=== PATIENT | male | born 1990 | race American Indian/Alaskan Native ===

== ENCOUNTER 2021-10-15 13:14 | Emergency (ER) | payer MEDICAID, SELFPAY ==
[2021-10-15 13:21] VITALS: BP 113/54; PULSE 70; O2SAT 97
[2021-10-15 13:32] VITALS: BP 102/55; PULSE 70; RESP 16; TEMP 36.1; O2SAT 97; BMI 22.8
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
[2021-10-15] MEDS: Famotidine/PF 20 MG/2 ML VIAL IVPUSH (14:46)
[2021-10-15] MEDS: EPINEPHrine 1 MG/ML VIAL 0.3 MG IM (14:46)
--- NOTE | 2021-10-15 15:19 | ECG_ITS ---
Test Reason : anaphalaxis Blood Pressure : / mmHG Vent. Rate : 069 BPM Atrial Rate : 069 BPM P-R Int : 148 ms QRS Dur : 086 ms QT Int : 388 ms P-R-T Axes : 073 078 056 degrees QTc Int : 415 ms Normal sinus rhythm Normal ECG No previous ECGs available Referred By: Jose Tierney Electronically Signed By:FAN KAYE
[2021-10-15 16:06] VITALS: BP 116/55; PULSE 68; RESP 16; O2SAT 97
== END 2021-10-15 16:30 | disposition home or self-care (01) ==
PROVIDERS: Emergency Provider Emergency Medicine Emergency Medical Services
DX: L50.0 Allergic urticaria (principal); R06.02 Shortness of breath; Z79.899 Other long term (current) drug therapy
CPT/HCPCS: 93005; 99283; J0171

== ENCOUNTER 2023-08-01 03:51 | Emergency (ER) | payer SELFPAY ==
--- NOTE | 2023-08-01 | ECG_ITS ---
Test Reason : SEIZURES Blood Pressure : / mmHG Vent. Rate : 063 BPM Atrial Rate : 063 BPM P-R Int : 168 ms QRS Dur : 088 ms QT Int : 386 ms P-R-T Axes : 073 077 045 degrees QTc Int : 395 ms Normal sinus rhythm Normal ECG When compared with ECG of 15-OCT-2021 15:19, No significant change was found Referred By: Generic ED Physician Electronically Signed By:Marquez Robison
--- NOTE | ~2023-08-01 | CT_ITS ---
EXAMINATION: CT HEAD WITHOUT CONTRAST CLINICAL INFORMATION: Seizure. COMPARISON: 05/19/2012. TECHNIQUE: Contiguous axial imaging was performed from the skull base to vertex without intravenous administration of contrast. This CT examination was performed using dose optimization techniques as appropriate, variously including the following: *Automated exposure control *Adjustment of mA and/or kV according to patient size (this includes techniques or standardized protocols for targeted exams where dose is matched to indication/reason for exam; i.e. extremities or head) *Use of iterative reconstruction technique DLP: 655 mGy-cm FINDINGS: The lateral, third and fourth ventricles are normally outlined. The cortical sulci and basal cisterns are normally outlined as well. There is no acute territorial defect, hemorrhage or midline shift. The extra-axial spaces are unremarkable. Calvarium: Intact. Maxillofacial sinuses and mastoids: Clear as visualized. CT/CT head/brain wo IV con IMPRESSION: No acute intracranial pathology.
[2023-08-01 03:58] VITALS: BP 120/60; PULSE 77; O2SAT 98
[2023-08-01 03:59] VITALS: BP 109/59; PULSE 66; RESP 16; TEMP 36.7; O2SAT 97; BMI 24.4
[2023-08-01 04:24] LABS: MANUAL DIFF FLAG NO
[2023-08-01 04:27] LABS: Basophils Percent Auto 0.4 % (0-2); Eosinophils Absolute Auto 0.4 X10*3/uL (0.0-0.4); Hematocrit 43.3 % (42.0-52.0); Hemoglobin 14.9 g/dl (14.0-18.0); Imm Gran Abs Auto 0.01 X10*3/uL (0.00-0.03); Imm Gran Pct Auto 0.1 % (0.0-0.4); Lymphocytes Absolute Auto 2.9 X10*3/uL (1.2-4.9); Lymphocytes Percent Auto 39.2 % (20-40); Mean Corpuscular HGB Conc 34.4 g/dl (31.0-36.0); Mean Corpuscular Hemoglobin 30.3 pg (27.0-33.0); Mean Corpuscular Volume 88.2 fL (80.0-98.0); Mean Platelet Volume 9.1 fL (9.4-12.4); Monocytes Absolute Auto 0.6 X10*3/uL (0.1-1.2); Monocytes Percent Auto 8.1 % (2-11); Neutrophils Absolute Auto 3.5 x10*3/uL (2.0-8.3); Neutrophils Percent Auto 47.2 % (45-73); Platelet Count 225 X10*3/uL (160-400); Red Blood Count 4.91 X10*6/uL (4.60-5.80); Red Cell Distribution Width 13.5 % (11.0-16.0); White Blood Count 7.4 X10*3/uL (4.8-10.8)
--- NOTE | 2023-08-01 04:31 | PC.NURSE ---
IV place by EMS not flushing and patient reports pain in area. IV removed. New 20G placed in L forearm, patent and flushing well.
--- NOTE | 2023-08-01 04:32 | PC.NURSE ---
PT a & o x 4, sitting upright in bed, responding appropriately. Sig other @ bedside. Seizure pads in place. Labs sent. Awaiting provider.
[2023-08-01 04:42] LABS: Alanine Aminotransferase 16 U/L (0-40); Albumin Level 4.3 g/dL (3.5-5.0); Alkaline Phosphatase 59 U/L (39-117); Anion Gap 12 (12-20); Aspartate Amino Transferase 16 U/L (5-37); Bilirubin Total 0.3 mg/dL (0.0-1.0); Blood Urea Nitrogen 14 mg/dL (9-16); Calcium 9.1 mg/dL (8.4-10.2); Carbon Dioxide 24 mmol/L (22-29); Chloride 107 mmol/L (96-108); Creatinine Clr Calc Pharmacy 117.9; Estimated Glomerular Filt Rate > 60; Glucose Random 110 mg/dL (60-115); Potassium 3.7 mmol/L (3.3-5.1); Sodium 139 mmol/L (135-145); Total Protein 6.5 g/dL (6.5-8.0)
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
[2023-08-01 06:38] VITALS: BP 98/48; PULSE 56; RESP 14; TEMP 36.8; O2SAT 98
[2023-08-01] MEDS: Ketorolac Tromethamine 15 MG/ML VIAL 10 MG IVPUSH (07:55)
[2023-08-01 07:56] VITALS: PULSE 55; RESP 18; O2SAT 97
[2023-08-01 09:13] VITALS: BP 105/64; PULSE 60; RESP 16; TEMP 36.9; O2SAT 99
== END 2023-08-01 09:15 | disposition home or self-care (01) ==
PROVIDERS: Emergency Provider Emergency Medicine
DX: R56.9 Unspecified convulsions (principal); Z88.5 Allergy status to narcotic agent
CPT/HCPCS: 36415; 70450; 80053; 85025; 93005; 96374; 99284; 99285; J1885

== ENCOUNTER → 2023-08-01 04:04 | Outpatient (BNV) | payer SELFPAY | PROVIDERS: Emergency Provider Emergency Medicine; Visit Provider Internal Medicine Cardiovascular Disease | DX: R56.9 Unspecified convulsions (principal) | CPT/HCPCS: 93010 ==

== ENCOUNTER 2023-10-14 20:11 | Emergency (ER) | payer MEDICAID, SELFPAY ==
--- NOTE | ~2023-10-14 | XR_ITS ---
EXAMINATION: XR HAND, RIGHT CLINICAL INFORMATION: Laceration/punctate wound dorsal hand. COMPARISON: None available. TECHNIQUE: PA, lateral, and oblique views of the right hand. FINDINGS: Laceration and soft tissue swelling in the dorsal hand. No unexpected radiopaque foreign bodies. No acute fractures or subluxation. XR/XR hand RT min 3V IMPRESSION: 1. Laceration and soft tissue swelling in the dorsal hand. 2. No acute fractures or subluxation.
[2023-10-14 20:30] VITALS: BP 131/79; PULSE 75; RESP 18; TEMP 37; O2SAT 98; BMI 21.5
--- NOTE | 2023-10-14 20:30 | ED.WOUNDLAC ---
HPI - Wound/Laceration General Chief Complaint: Extremity Injury, Upper Stated Complaint: right hand lac Time Seen by Provider: 10/14/23 21:19 Source: patient Mode of arrival: ambulatory Limitations: no limitations History of Present Illness ED Provider: DR. Russell HPI narrative: Patient is a 33-year-old right hand dominant male presenting to the ED with complaint of right hand laceration which happened 2 or 3 days ago. States he fell through his glass coffee table but had other business to attend to so did not come into the ED right away. 1cm deep laceration to dorsal hand, unable to fully extend 3rd finger, erythema spreading to mid forearm. Denies fevers. Denies history of DM. Unsure last Tdap. Related Data Previous Rx's ?Medication ?Instructions ?Recorded epinephrine 0.3 mg/0.3 mL 0.3 mg (0.3 mL) IM .q15min PRN 10/15/21 injection, auto-injector (EpiPen anaphylaxis #2 ea 2-Greg) prednisone 20 mg tablet 60 mg (3 x 20 mg) PO DAILY 5 days 10/15/21 #15 tabs doxycycline hyclate 100 mg tablet 100 mg PO BID #20 tabs 10/14/23 Allergies Allergy/AdvReac Type Severity Reaction Status Date / Time kiwi Allergy Severe Anaphylaxis Verified 10/14/23 20:35 codeine Allergy Unknown HIVES Verified 10/14/23 20:35 banana Allergy Anaphylaxis Verified 10/14/23 20:35 Codeine Sulfate Allergy Unknown Anaphylaxis Uncoded 10/14/23 20:35 Codeine Phosphate Allergy Anaphylaxis Uncoded 10/14/23 20:35 Review of Systems Review of Systems: All other systems are reviewed and are negative Constitutional: Reports as per HPI and Reports no additional constitutional complaints Eyes: Reports as per HPI and Reports no additional eye complaints Reports system reviewed and no additional complaints, except as documented Cardiovascular: Reports as per HPI and Reports no additional cardiovascular complaints Respiratory: Reports as per HPI and Reports no additional respiratory complaints Gastrointestinal: Reports as per HPI and Reports no additional gastrointestinal complaints Genitourinary: Reports no additional female genitourinary complaints Musculoskeletal: Reports no additional musculoskeletal complaints Skin/Breast: Reports system reviewed and no additional complaints, except as docu Psychiatric: Reports no additional psychiatric complaints Endocrine: Reports no additional endocrine complaints Hematologic/Lymphatic: Reports no additional hematologic/lymphatic complaints Allergic/Immunologic: Reports no additional allergic/immunologic complaints Reports system reviewed and no additional complaints, except as documented and Reports Abnormal speech present [facility] Social History Social History Smoked in Last 30 Days: Yes Substance Use Type: Marijuana Advance Directives: No Advance Directives Information Provided: No Do you have a plan to hurt others: No Plan Physical Exam Vital Signs: Vital Signs: Last Vital Signs Temp 98.3 F 10/14/23 21:41 Pulse 73 10/14/23 21:41 Resp 17 10/14/23 21:41 BP 126/81 10/14/23 21:41 Pulse Ox 97 10/14/23 21:41 O2 Del Method Room Air 10/14/23 21:41 BMI result Body Mass Index 21.5 Vital signs have been reviewed and appear to be correct. Blood pressure elevated. Heart rate normal. Respiratory rate normal. Temperature normal. Oxygen saturation normal. Appearance: Alert. Oriented X3. No acute distress. Head: Normal external exam. Normocephalic. Atraumatic. No Marie signs noted. No raccoon eyes noted Eyes: PERRLA. EOMI. Conjunctiva and sclera normal. Eyelids normal. ENT: TM's Normal. Pharynx normal. Uvula midline. Moist mucous membranes. No trismus noted. No drooling noted. No muffled voice noted. Neck: Normal inspection. Neck supple. FROM. No adenopathy. Thyroid Normal. No meningeal signs. No neck mass noted. CVS: Normal heart rate and rhythm. Heart sound normal. No murmurs noted. Pulses normal throughout. Respiratory: No respiratory distress. Painless inspiration. Breath sounds normal. No wheezes/rales/rhonchi noted. Chest nontender. No accessory muscle usage noted or decreased air movement noted. Abdomen: Soft and nontender. Bowel sounds normal in all 4 quadrants. No distention noted. No organomegaly noted. No visible injury noted. Back: No CVA tenderness. Full range of motion noted. Skin: Skin warm and dry. Normal skin color. Normal skin turgor. No rashes/lesions/lacerations noted. Extremities: 2 open wounds on the dorsum of the right hand surrounded with swelling, erythema, no fluctuation, right 3rd finger is held in flexi on position patient is unable to do an extension of 3rd finger. Neuro: Oriented X 3. Cranial nerve exam: II-XII are grossly intact No motor deficit. No sensory deficit. Reflexes normal. Course Course Course Narrative: This is a rapid medical exam performed by Daren Abarca NP: Additional HPI, ROS, PE not included below will be deferred to primary provider. Plan: Tdap, xray, labs Reevaluation(s) Reevaluation #1: 33-year-old male right-handed came in with old laceration to the right hand with infection, patient is unable to extend his right 3rd finger likely to injury of the extensor tendon. The case was discussed with Ryan Quesada from Orthopedic who recommended to admit the patient overnight to medical service with antibiotic and keep the patient NPO after midnight, patient adamantly would like to leave tonight and he will keep himself NPO after midnight and come back tomorrow morning. The plan was discussed with Ryan quesada who will reach out to the patient in the a.m. Will discharge on doxycycline and NSAIDs if needed, patient was instructed to keep NPO after midnight. Time: 22:05 Medications Administered Discontinued Medications Generic Name Dose Route Start Last Admin Trade Name Freq PRN Reason Stop Dose Admin Diphtheria/Tetanus/Acell Pertussis 0.5 ml 10/14/23 20:35 10/14/23 21:37 Diphth,Pertus(Acell),Tet Adult 0.5 Ml Syringe IM 10/14/23 20:36 0.5 ml .ONCE ONE Administration Doxycycline Monohydrate 100 mg 10/14/23 21:29 10/14/23 21:38 Doxycycline Monohydrate 100 Mg Capsule PO 10/14/23 21:30 100 mg ONCE ONE Administration Medical Decision Making Differential Diagnosis Differential Diagnoses: The differential diagnosis associated with the presentation includes (Right hand cellulitis, tenosynovitis, foreign body retention, extensor tendon tear of the right 3rd digit.) Admission/Observation Consideration of admission/observation: Escalation of care including admission/observation considered Consult Healthcare Provider Management of the patient was discussed with: Lighting Equipment Operator (Ryan Quesada) Lab Data [facility] Lab Attestation statement: I reviewed the patient's lab results. 10/14/23 20:45 10/14/23 20:45 Labs: Lab Results 10/14/23 Range/Units 20:45 WBC 14.5 H (4.8-10.8) X10*3/uL RBC 4.30 L (4.60-5.80) X10*6/uL Hgb 13.1 L (14.0-18.0) g/dl Hct 37.5 L (42.0-52.0) % MCV 87.2 (80.0-98.0) fL MCH 30.5 (27.0-33.0) pg MCHC 34.9 (31.0-36.0) g/dl RDW 13.1 (11.0-16.0) % Plt Count 296 D (160-400) X10*3/uL MPV 9.0 L (9.4-12.4) fL Immature Gran % (Auto) 0.5 H (0.0-0.4) % Neut % (Auto) 70.4 (45-73) % Lymph % (Auto) 18.0 L (20-40) % Upson % (Auto) 10.0 (2-11) % Eos % (Auto) 0.8 (0-4) % Baso % (Auto) 0.3 (0-2) % Lymph # (Auto) 2.6 (1.2-4.9) X10*3/uL Upson # (Auto) 1.5 H (0.1-1.2) X10*3/uL Eos # (Auto) 0.1 (0.0-0.4) X10*3/uL Baso # (Auto) 0.0 (0.0-0.2) X10*3/uL Abs Immat Gran (auto) 0.07 H (0.00-0.03) X10*3/uL Absolute Neuts (auto) 10.2 H (2.0-8.3) x10*3/uL Absolute Nucleated RBC 0.000 (0.0-0.012) X10*3/uL Nucleated RBC % (auto) 0.0 (0.0-0.2) /100WBC ESR 46 H (0-15) MM/HR Sodium 143 (135-145) mmol/L Potassium 3.7 (3.3-5.1) mmol/L Chloride 107 (96-108) mmol/L Carbon Dioxide 26 (22-29) mmol/L Anion Gap 14 (12-20) BUN 10 (9-16) mg/dL Creatinine 0.79 (0.5-1.4) mg/dL Estim Creat Clear Calc 125.5 Estimated GFR > 60 Random Glucose 81 (60-115) mg/dL Calcium 9.7 D (8.4-10.2) mg/dL Total Bilirubin 0.2 (0.0-1.0) mg/dL AST 18 (5-37) U/L ALT 17 (0-40) U/L Alkaline Phosphatase 73 (39-117) U/L C-Reactive Protein 17.85 H (< or = 0.50) mg/dL Total Protein 7.4 (6.5-8.0) g/dL Albumin 4.3 (3.5-5.0) g/dL Independent Interpretation I performed an independent interpretation of an: Plain X-Ray (Right hand:1. Laceration and soft tissue swelling in the dorsal hand. 2. No acute fractures or subluxation. ) Radiology Impression Discussion of test interpretation with radiology: I have reviewed the radiologist's reading. Discharge Plan Discharge Clinical Impression: Cellulitis of finger of right hand, Laceration of extensor muscle, fascia and tendon of right middle finger at wrist and hand level, subsequent encounter Patient Disposition: Home, Self-Care Instructions: Cellulitis (ED), Tendon Laceration (ED) Additional Instructions: Do not eat or drink anything after midnight tonight and keep yourself fasting until you see Dr. Amado in the morning for possible surgery. Prescriptions: New doxycycline hyclate 100 mg tablet 100 mg PO BID Qty: 20 0RF No Action epinephrine [EpiPen 2-Greg] 0.3 mg/0.3 mL auto-injector 0.3 mg IM .q15min PRN (Reason: anaphylaxis) Qty: 2 0RF prednisone 20 mg tablet 60 mg PO DAILY 5 Days Qty: 15 0RF Referrals: Makayla Amado MD [Physician] - Stand Alone Forms: Work/School Release Print Language: Kyrgyz
[2023-10-14 20:49] LABS: Basophils Percent Auto 0.3 % (0-2); Eosinophils Absolute Auto 0.1 X10*3/uL (0.0-0.4); Eosinophils Percent Auto 0.8 % (0-4); Hematocrit 37.5 % (42.0-52.0); Hemoglobin 13.1 g/dl (14.0-18.0); Imm Gran Abs Auto 0.07 X10*3/uL (0.00-0.03); Imm Gran Pct Auto 0.5 % (0.0-0.4); Lymphocytes Absolute Auto 2.6 X10*3/uL (1.2-4.9); MANUAL DIFF FLAG NO; Mean Corpuscular HGB Conc 34.9 g/dl (31.0-36.0); Mean Corpuscular Hemoglobin 30.5 pg (27.0-33.0); Mean Corpuscular Volume 87.2 fL (80.0-98.0); Monocytes Absolute Auto 1.5 X10*3/uL (0.1-1.2); Neutrophils Absolute Auto 10.2 x10*3/uL (2.0-8.3); Neutrophils Percent Auto 70.4 % (45-73); Platelet Count 296 X10*3/uL (160-400); Red Cell Distribution Width 13.1 % (11.0-16.0); White Blood Count 14.5 X10*3/uL (4.8-10.8)
[2023-10-14 21:02] LABS: Alanine Aminotransferase 17 U/L (0-40); Albumin Level 4.3 g/dL (3.5-5.0); Alkaline Phosphatase 73 U/L (39-117); Anion Gap 14 (12-20); Aspartate Amino Transferase 18 U/L (5-37); Bilirubin Total 0.2 mg/dL (0.0-1.0); Blood Urea Nitrogen 10 mg/dL (9-16); C Reactive Protein 17.85 mg/dL (< or = 0.50); Calcium 9.7 mg/dL (8.4-10.2); Carbon Dioxide 26 mmol/L (22-29); Chloride 107 mmol/L (96-108); Creatinine Clr Calc Pharmacy 125.5; Estimated Glomerular Filt Rate > 60; Glucose Random 81 mg/dL (60-115); Potassium 3.7 mmol/L (3.3-5.1); Sodium 143 mmol/L (135-145); Total Protein 7.4 g/dL (6.5-8.0)
[2023-10-14 21:21] LABS: Erythrocyte Sedimentation Rate 46 MM/HR (0-15)
[2023-10-14] MEDS: Diphth,Pertus(ACell),Tet Adult 0.5 ML SYRINGE IM (21:37)
[2023-10-14] MEDS: Doxycycline Monohydrate 100 MG CAPSULE PO (21:38)
[2023-10-14 21:41] VITALS: BP 126/81; PULSE 73; RESP 17; TEMP 36.8; O2SAT 97
[2023-10-14] MEDS: Ibuprofen 600 MG TABLET PO (22:18)
[2023-10-14 22:22] VITALS: BP 113/64; PULSE 73; RESP 22; TEMP 37.1; O2SAT 97
== END 2023-10-14 22:25 | disposition home or self-care (01) ==
PROVIDERS: Registered Nurse Emergency; Emergency Provider Emergency Medicine
DX: S66.322A Laceration of extensor muscle, fascia and tendon of right middle finger at wrist and hand level, initial encounter (principal); S61.511A Laceration without foreign body of right wrist, initial encounter; S61.411A Laceration without foreign body of right hand, initial encounter; L03.113 Cellulitis of right upper limb; W25.XXXA Contact with sharp glass, initial encounter; Y93.9 Activity, unspecified; Y92.9 Unspecified place or not applicable; Y99.8 Other external cause status; Z23 Encounter for immunization; Z79.899 Other long term (current) drug therapy
CPT/HCPCS: 36415; 73130; 80053; 85025; 85652; 86140; 90471; 90715; 99284

== ENCOUNTER 2023-10-15 08:36 | Inpatient (IN) | payer MEDICAID, SELFPAY ==
[2023-10-15 08:38] VITALS: BP 139/81; PULSE 105; RESP 16; TEMP 36.4; O2SAT 97; BMI 21.6
--- NOTE | 2023-10-15 09:02 | ED_ITS ---
HPI - Extremity Problem General Chief complaint: Extremity Injury, Upper Stated complaint: Seen yesterday, was advised to return Time Seen by Provider: 10/15/23 09:01 Source: patient Mode of arrival: ambulatory Limitations: no limitations History of Present Illness ED Provider: Vita Brewster PA-C HPI Narrative: 33-year-old male presents for evaluation of right hand laceration sustained from a fall through a glass coffee table on 10/11/2023. He was seen in the ED yesterday for this issue and discharged with doxycycline and orthopedic referral as he is unable to extend his 3rd finger at the MCP joint. This morning the ortho office reached out and told him that he needed to return here for IV antibiotics and medical admission. He reports pain around the laceration site, redness up to the middle of his forearm, tingling sensation at the 3rd MCP joint and an inability to extend that finger. MD Complaint: other (R hand laceration) Onset (ago): day(s) (5) Related Data Previous Rx's ?Medication ?Instructions ?Recorded epinephrine 0.3 mg/0.3 mL 0.3 mg (0.3 mL) IM .q15min PRN 10/15/21 injection, auto-injector (EpiPen anaphylaxis #2 ea 2-Greg) prednisone 20 mg tablet 60 mg (3 x 20 mg) PO DAILY 5 days 10/15/21 #15 tabs doxycycline hyclate 100 mg tablet 100 mg PO BID #20 tabs 10/14/23 Allergies Allergy/AdvReac Type Severity Reaction Status Date / Time kiwi Allergy Severe Anaphylaxis Verified 10/15/23 08:41 codeine Allergy Unknown HIVES Verified 10/15/23 08:41 banana Allergy Anaphylaxis Verified 10/15/23 08:41 Codeine Sulfate Allergy Unknown Anaphylaxis Uncoded 10/15/23 08:41 Codeine Phosphate Allergy Anaphylaxis Uncoded 10/15/23 08:41 Review of Systems 2 Constitutional: Constitutional: Reports no additional constitutional complaints, Denies chills, Denies fever(s) and Denies night sweats Eyes: Eyes: Reports no additional eye complaints, Denies blurry vision, Denies change in vision, Denies diplopia, Denies eye discharge, Denies loss of vision and Denies eye pain ENT: Denies dizziness Cardiovascular: Cardiovascular: Reports no additional cardiovascular complaints, Denies chest pain, Denies lightheadedness, Denies Loss of Consciousness and Denies dyspnea Respiratory: Respiratory: Reports no additional respiratory complaints and Denies dyspnea Gastrointestinal: Gastrointestinal: Reports no additional gastrointestinal complaints, Denies abdominal pain, Denies melena, Denies hematochezia, Denies change in bowel habits and Denies change in stool character Genitourinary: Genitourinary: Reports no additional male genitourinary complaints, Denies hematuria, Denies oliguria, Denies difficulty urinating, Denies dysuria, Denies urinary frequency, Denies urinary hesitancy, Denies urinary incontinence and Denies urinary urgency Musculoskeletal: Musculoskeletal: Reports no additional musculoskeletal complaints, Reports as per HPI, Reports limited range of motion (limited 3rd finger extension ), Denies numbness and Reports tingling (over 3rd finger joint) Integumentary/Breasts: Skin/Breast: Reports system reviewed and no additional complaints, except as docu, Reports erythema (over back of right hand up to middle of right forearm) and Reports other (2 deeper lacerations on the back of right hand) Neurologic: Denies dizziness, Denies loss of vision, Denies numbness and Reports tingling (over 3rd finger joint) Psychiatric: Psychiatric: Reports no additional psychiatric complaints Endocrine: Endocrine: Reports no additional endocrine complaints Hematologic/Lymphatic: Hematologic/Lymphatic: Reports no additional hematologic/lymphatic complaints Allergic/Immunologic: Allergic/Immunologic: Reports no additional allergic/immunologic complaints PMFSH Past Medical History Attestation statement: The following information was validated with the patient. Source: old records reviewed and nursing notes reviewed Social History Social History Alcohol intake: current Smoked in Last 30 Days: No Use of substances other than those prescribed or required for medical reasons: No Substance Use Type: Marijuana Advance Directives: No Advance Directives Information Provided: Yes Physical Exam 2 Vital Signs: Vital Signs: Last Vital Signs Temp 97.8 F 10/15/23 10:00 Pulse 71 10/15/23 10:00 Resp 16 10/15/23 08:38 BP 126/83 10/15/23 10:00 Pulse Ox 97 10/15/23 10:00 O2 Del Method Room Air 10/15/23 10:00 BMI result Body Mass Index 21.6 Const: General: cooperative, no acute distress, alert and awake Nutritional Appearance: well nourished Orientation/consciousness: patient oriented x3 Limitations: no limitations HEENT: Head: Yes normal to inspection and Yes atraumatic Ears: hearing grossly normal bilaterally and external ears normal General nose exam: Normal external nose present, no nasal discharge noted and no epistaxis Face and sinus: Yes normal facial exam, No abrasion and No laceration Mouth: Normal oral and palatal mucosa present, no drooling and no muffled voice Eyes: General: appearance normal, both eyes and all related structures P eriorbital: periorbital findings normal Eyelids: Yes eyelids normal C onjunctivae: conjunctivae normal Pupils: Equal, round and reactive pupils present EOM: EOMs intact bilaterally Neck: Neck: Yes normal visual inspection, Yes full ROM and Yes no lymphadenopathy Chest: Chest palpation & inspection: normal inspection of the chest Resp: Effort & Inspection: normal respiratory effort and able to speak in complete sentences GI: Inspection: Yes normal to inspection Neuro: General: patient oriented x3 and moves all extremities Cranial nerves: Yes Equal, round and reactive pupils present Cognition (Neuro): n ormal cognition Motor exam (neuro): 5/5 motor strength present throughout Sensory Exam: Normal double simultaneous stimulation for sensation C oordination: [id number]-lr-[id number] test normal Extrem: General: Yes capillary refill normal and Yes normal exam except as noted Right upper extremity: Extremity exam: right hand Details: warmth, swelling and laceration dorsal aspect central Details: puncture, involving subcutaneous tissue, involving muscle tissue, with motor nerve function intact (motor function intact at DIP and PIP of 3rd finger, extension at 3rd MCP limited but flexion intact) and with sensation intact (distal and proximal, tingling sensation over 3rd MCP joint ) Hand/finger images: 1. laceration, no active bleeding 2. laceration, no active bleeding Psych: Appearance: grossly normal Mental Status: mental status grossly normal Affect: normal affect Attitude: cooperative Thought process: N ormal thought process present Thought content: Normal thought content present Insight: Good insight present (Psych) Medications Administered Discontinued Medications Generic Name Dose Route Start Last Admin Trade Name Freq PRN Reason Stop Dose Admin Acetaminophen 975 mg 10/15/23 10:20 10/15/23 10:32 Acetaminophen 325 Mg Tablet PO 10/15/23 10:21 975 mg ONCE ONE Administration Piperacillin Sod/Tazobactam 50 mls @ 100 mls/hr 10/15/23 09:03 10/15/23 10:41 Sod 3.375 gm/ Sodium Chloride IV 10/15/23 09:32 Infused ONCE ONE Infusion Medical Decision Making Medical Decision Making [facility] Narrative: Patient is a 33 year old assigned male at with no reported medical history presenting to the emergency department today with worsening right hand infection. Patient's physical exam was as noted in the physical exam portion of this note. Compared to the pictures in the chart from 10/14/2023, the patient's cellulitis appears much more wide spread on the RUE. Patient's blood work showed an elevated WBC count, ESR, and CRP which are consistent with a cellulitis. Patient's clinical presentation is not consistent with sepsis (@1020). I consulted with ortho who recommended medical admission for IV antibiotics. I spoke to the hospitalist team who agreed to admission. I explained my physical exam findings as well as all test results to the patient. I answered all questions asked by the patient. I stressed the importance of the patient taking his medication as prescribed. I stressed the importance of the patient following up with his primary care provider. I stressed the importance of the patient returning to the emergency department immediately if his symptoms were to worsen or if he were to develop any dizziness, shortness of breath, difficulty breathing, chest pain, blurry vision, loss of vision, nausea, vomiting, abdominal pain, fever, chills, back pain, or any other complaints. Patient verbalized agreement and understanding with this treatment plan and discharge. Differential Diagnosis Differential Diagnoses: The differential diagnosis associated with the presentation includes Cellulitis Extensor tendon injury Admission/Observation Consideration of admission/observation: Escalation of care including admission/observation considered Patient admitted Consult Healthcare Provider Management of the patient was discussed with: Hospitalist (agreed to admission as noted in the MDM Rationale portion of this note) and Senior Salesforce Developer (spoke to the ortho team as noted in the MDM Rationale portion of this note) Lab Data [facility] Lab Attestation statement: I reviewed the patient's lab results. My interpretation of these results are in the MDM Rationale portion of this note. 10/15/23 09:18 10/15/23 09:18 Labs: Lab Results 10/15/23 Range/Units 09:18 WBC 10.5 (4.8-10.8) X10*3/uL RBC 4.12 L (4.60-5.80) X10*6/uL Hgb 12.7 L (14.0-18.0) g/dl Hct 36.4 L (42.0-52.0) % MCV 88.3 (80.0-98.0) fL MCH 30.8 (27.0-33.0) pg MCHC 34.9 (31.0-36.0) g/dl RDW 13.1 (11.0-16.0) % Plt Count 286 (160-400) X10*3/uL MPV 9.0 L (9.4-12.4) fL Immature Gran % (Auto) 0.6 H (0.0-0.4) % Neut % (Auto) 61.7 (45-73) % Lymph % (Auto) 25.0 (20-40) % Evans % (Auto) 9.7 (2-11) % Eos % (Auto) 2.5 (0-4) % Baso % (Auto) 0.5 (0-2) % Lymph # (Auto) 2.6 (1.2-4.9) X10*3/uL Evans # (Auto) 1.0 (0.1-1.2) X10*3/uL Eos # (Auto) 0.3 (0.0-0.4) X10*3/uL Baso # (Auto) 0.1 (0.0-0.2) X10*3/uL Abs Immat Gran (auto) 0.06 H (0.00-0.03) X10*3/uL Absolute Neuts (auto) 6.5 (2.0-8.3) x10*3/uL Absolute Nucleated RBC 0.000 (0.0-0.012) X10*3/uL Nucleated RBC % (auto) 0.0 (0.0-0.2) /100WBC ESR 44 H (0-15) MM/HR Sodium 141 (135-145) mmol/L Potassium 4.1 (3.3-5.1) mmol/L Chloride 107 (96-108) mmol/L Carbon Dioxide 26 (22-29) mmol/L Anion Gap 12 (12-20) BUN 11 (9-16) mg/dL Creatinine 0.70 (0.5-1.4) mg/dL Estim Creat Clear Calc 142.0 Estimated GFR > 60 Random Glucose 101 (60-115) mg/dL Lactic Acid 0.7 (0.5-2.0) mmol/L Calcium 9.6 (8.4-10.2) mg/dL Total Bilirubin 0.2 (0.0-1.0) mg/dL AST 25 (5-37) U/L ALT 25 (0-40) U/L Alkaline Phosphatase 68 (39-117) U/L C-Reactive Protein 12.29 H (< or = 0.50) mg/dL Total Protein 6.9 (6.5-8.0) g/dL Albumin 4.0 (3.5-5.0) g/dL Critical Care Time Critical Care Time Critical Care Time: Yes Total Critical Care Time: 32 Attestation: I spent 32 minutes of Critical Care Time with this patient. This does not include time spent on separately reported billable procedures. Discharge Plan Discharge Clinical Impression: Cellulitis of right arm, Cellulitis of hand, Tendon dysfunction Patient Disposition: Admitted As Inpatient Print Language: Syriac
[2023-10-15 09:35] LABS: MANUAL DIFF FLAG NO
[2023-10-15 09:38] LABS: Basophils Absolute Auto 0.1 X10*3/uL (0.0-0.2); Basophils Percent Auto 0.5 % (0-2); Eosinophils Absolute Auto 0.3 X10*3/uL (0.0-0.4); Eosinophils Percent Auto 2.5 % (0-4); Hematocrit 36.4 % (42.0-52.0); Hemoglobin 12.7 g/dl (14.0-18.0); Imm Gran Abs Auto 0.06 X10*3/uL (0.00-0.03); Imm Gran Pct Auto 0.6 % (0.0-0.4); Lymphocytes Absolute Auto 2.6 X10*3/uL (1.2-4.9); Mean Corpuscular HGB Conc 34.9 g/dl (31.0-36.0); Mean Corpuscular Hemoglobin 30.8 pg (27.0-33.0); Mean Corpuscular Volume 88.3 fL (80.0-98.0); Monocytes Percent Auto 9.7 % (2-11); Neutrophils Absolute Auto 6.5 x10*3/uL (2.0-8.3); Neutrophils Percent Auto 61.7 % (45-73); Platelet Count 286 X10*3/uL (160-400); Red Blood Count 4.12 X10*6/uL (4.60-5.80); Red Cell Distribution Width 13.1 % (11.0-16.0); White Blood Count 10.5 X10*3/uL (4.8-10.8)
[2023-10-15] MEDS: Piperacillin Sodium/Tazobactam 3.375 GM in 0.9 % Sodium Chloride 50 ML IV (09:45)
[2023-10-15 09:49] LABS: Lactic Acid 0.7 mmol/L (0.5-2.0)
[2023-10-15 09:53] LABS: Alanine Aminotransferase 25 U/L (0-40); Alkaline Phosphatase 68 U/L (39-117); Anion Gap 12 (12-20); Aspartate Amino Transferase 25 U/L (5-37); Bilirubin Total 0.2 mg/dL (0.0-1.0); Blood Urea Nitrogen 11 mg/dL (9-16); C Reactive Protein 12.29 mg/dL (< or = 0.50); Calcium 9.6 mg/dL (8.4-10.2); Carbon Dioxide 26 mmol/L (22-29); Chloride 107 mmol/L (96-108); Estimated Glomerular Filt Rate > 60; Glucose Random 101 mg/dL (60-115); Potassium 4.1 mmol/L (3.3-5.1); Sodium 141 mmol/L (135-145); Total Protein 6.9 g/dL (6.5-8.0)
--- NOTE | 2023-10-15 09:56 | PC.NURSE ---
pt alert and oriented. room air, resp even and unlabored. speaking in full clear sentences. abd soft. open wound to R hand, seen by ortho. plan to admit for IV abx and then follow up for ortho surgery. IV established, blood work and cultures sent per orders. 20g IV to L FA. Zosyn given per orders. Pt reporting 6/10 pain, requesting ibuprofen.
[2023-10-15 10:00] VITALS: BP 126/83; PULSE 71; TEMP 36.6; O2SAT 97
[2023-10-15 10:14] LABS: Erythrocyte Sedimentation Rate 44 MM/HR (0-15)
[2023-10-15] MEDS: Acetaminophen 325 MG TABLET 975 MG PO ×2 (10:32→19:37)
--- NOTE | 2023-10-15 11:02 | PHA.MEDREC ---
Pharmacy Consult ? Medication Reconciliation Pharmacy has completed the medication reconciliation. Patient sates he isn't taking any medication. Patient was here yesterday 10-14-23 discharged with Doxcycline 100 mg bid.
--- NOTE | 2023-10-15 11:12 | PM.IMHP ---
History of Present Illness Date of Service: 10/15/23 Attending physician on admission: [facility] Chief Complaint: Worsening cellulitis, hand laceration Pt is a 33-year-old male with a PMH significant for?hx of seizures not on home meds who presents to the ED for evaluation of worsening right hand cellulitis. ?Patient reports he tripped and fell in his living room 4 days prior on Friday and braced his fall with his right hand which went through a glass coffee table. Patient suffered multiple lacerations to the dorsal aspect of his right hand. Did not initially seek medical attention for his injury, but cleaned out his wounds and wrapped his hand in a clean bandage. Took ibuprofen for pain. Noticed increased swelling and redness in hand, some purulent discharge, and had difficulty with moving third digit, all of which prompted his visit to the ED yesterday evening. Imaging of right hand was negative for acute fracture or subluxation. Orthopedics was consulted who felt patient should be admitted to the medical services, but patient did not want to stay in the hospital and so was discharged on doxycycline p.o.. Orthopedics reached out to patient this morning and told him he needed to come back to the ED for admission and IV antibiotics prior to any surgical procedure. Patient states redness on his right had increased overnight. Continues to have difficulty moving his middle finger, especially with flexion. Also reports some numbness to proximal aspect of 3rd digit. Denies fever or chills. States he occasionally gets palpitations, especially after energy drinks. Currently no chest pain or pressure. Denies shortness or breath. No nausea, vomiting, abdominal pain. In the ED pt was afebrile but tachycardic up to 105, vitals otherwise WNL. Labs were significant for elevated ESR 44 and C-reactive protein 12.29, otherwise grossly unremarkable. No leukocytosis. Stable H&H. No significant electrolyte abnormalities. Lactic acid WNL at 0.7. Renal and hepatic function baseline. Pt was treated with Zosyn and acetaminophen. Pt will be admitted to the hospital for treatment and further evaluation of right hand laceration and cellulitis that failed outpatient therapy. Review of Systems Review of Systems: Right hand redness, swelling, pain with purulent discharge Numbness of proximal aspect of right hand 3rd digit Denies fever, chills No nausea, vomiting, abdominal pain Denies shortness of breath or difficulty breathing PMFSH Medical History (Updated 10/15/23 @ 12:46 by NALINI Sheikh) History of seizures Social History Household Members: None Housing: Condominium Do you presently have visiting nurse or other home services: No Alcohol intake: current Patient Tobacco Use Status: Never used Tobacco Smoked in Last 30 Days: No Use of substances other than those prescribed or required for medical reasons: Yes Substance Use Type: Marijuana Substance Use Frequency: Occasionally Last Used Substance: Days (ago) Currently Displaying Signs/Symptoms of Drug Intoxication Withdrawal: No Have you been hit, kicked, punched, or otherwise hurt by someone within the past year? If so, by whom?: No Do you feel safe in your current relationship?: No Current Relationship Is there a partner from a previous relationship who is making you feel unsafe now?: No Are you made to feel afraid or neglected: No Advance Directives: No Advance Directives Information Provided: Yes Do you have a plan to hurt others: No Plan Recently lost weight without trying: No How much weight loss: Not applicable Eating poorly because of decreased appetite: No Nutrition screen score: 0 Nutrition Risks: No Nutritional Risk Poor oral hygiene: No Meds Allergies Allergy/AdvReac Type Severity Reaction Status Date / Time kiwi Allergy Severe Anaphylaxis Verified 10/15/23 08:41 codeine Allergy Unknown HIVES Verified 10/15/23 08:41 banana Allergy Anaphylaxis Verified 10/15/23 08:41 Codeine Sulfate Allergy Unknown Anaphylaxis Uncoded 10/15/23 08:41 Codeine Phosphate Allergy Anaphylaxis Uncoded 10/15/23 08:41 Home Medications ?Medication ?Instructions ?Recorded ?Confirmed ?Last Taken ?Type No Known Home Meds 10/15/23 10/15/23 Unknown History Physical Exam Vital Signs and Narrative: Vital Signs: Last Vital Signs Temp 97.8 F 10/15/23 10:00 Pulse 71 10/15/23 10:00 Resp 16 10/15/23 08:38 BP 126/83 10/15/23 10:00 Pulse Ox 97 10/15/23 10:00 O2 Del Method Room Air 10/15/23 10:00 BMI result Body Mass Index 21.6 General: AOx3, no acute distress Resp: CTA bilaterally CVS: S1, S2, RRR GI: +BS, NT, no distention Skin: Warm, dry Neuro: Cranial nerves II-XII grossly intact bilaterally. Motor grossly intact bilaterally Extremities: No edema. Significant swelling to right hand. Warmth and erythema of right hand extending to mid forearm. 2 cm deep laceration and 1 cm laceration to dorsal aspect of right hand. As pictured below. Flexion and extension of third right digit limited due to possible tendon injury. Psych: Appropriate affect Results Labs 10/15/23 09:18 10/15/23 09:18 Labs: Laboratory Results - last 24 hr 10/15/23 09:18 MCV 88.3 MCH 30.8 MCHC 34.9 RDW 13.1 Plt Count 286 MPV 9.0 L Immature Gran % (Auto) 0.6 H Neut % (Auto) 61.7 Lymph % (Auto) 25.0 Zavala % (Auto) 9.7 Eos % (Auto) 2.5 Baso % (Auto) 0.5 Lymph # (Auto) 2.6 Zavala # (Auto) 1.0 Eos # (Auto) 0.3 Baso # (Auto) 0.1 Abs Immat Gran (auto) 0.06 H Absolute Neuts (auto) 6.5 Absolute Nucleated RBC 0.000 Nucleated RBC % (auto) 0.0 ESR 44 H Anion Gap 12 Estim Creat Clear Calc 142.0 Estimated GFR > 60 Random Glucose 101 Lactic Acid 0.7 Calcium 9.6 Total Bilirubin 0.2 AST 25 ALT 25 Alkaline Phosphatase 68 C-Reactive Protein 12.29 H Total Protein 6.9 Albumin 4.0 Assessment and Plan (1) Cellulitis of hand: Status: Acute Plan Pt is a 33-year-old male with a PMH significant for?hx of seizures not on home meds who presents to the ED for evaluation of worsening right hand cellulitis. ?Pt will be admitted to the hospital for treatment and further evaluation of right hand laceration and cellulitis that failed outpatient therapy. Right hand lacerations with cellulitis Secondary to falling through a glass coffee table 4 days prior Initially seen in the ED last night and discharged on p.o. doxy after not wanting to be admitted to the hospital Does not meet sepsis criteria: 1 episode of tachycardia, but no fever, tachypnea, or leukocytosis; lactic acid WNL Patient is started on broad-spectrum antibiotics in the ED Will treat with vancomycin, started 10/15/2023 Orthopedic consult Follow cultures Hx of Seizures Patient reports 2 episodes of grand mal seizures, last in 07/2023 Reports workup has been negative, unclear etiology Not on home meds, not following with Neurology Full Code Attending:?Dr. Martinez DVT Prophylaxis: Compression therapy due to likely surgical procedure in the morning; pt ambulatory Pt will require a hospitalization of at least two nights for treatment of?worsening right a cellulitis that failed outpatient therapy secondary to right hand lacerations that will likely surgical intervention. Patient require the administration of IV antibiotics and specialist consultation with Orthopedics. Quality Stroke Does the patient have a stroke diagnosis?: No VTE Prior VTE?: No VTE Risk Level:: Medical - moderate - high VTE Device Contraindication: N/A - Device Ordered VTE Drug Contraindication: Treatment Not Indicated
[2023-10-15] MEDS: vancomycin HCL 1,000 MG, vancomycin HCL 750 MG in 0.9 % Sodium Chloride 500 ML 267.5 MG IV (12:14)
[2023-10-15 12:32] VITALS: BP 117/70; PULSE 73; RESP 16; TEMP 36.6; O2SAT 98
[2023-10-15 12:59] VITALS: BMI 21.6
[2023-10-15 13:09] VITALS: BP 140/61; PULSE 68; RESP 16; TEMP 36.1; O2SAT 98
--- NOTE | 2023-10-15 14:00 | PHA.PROG ---
Admission Date/Time: October 15, 2023 11:39 Indication: SKIN Weight in k.5 kg Adjusted body weight in Kg: [place] body weight in Kg: Obesity Dosing Indication % IBW: Serum Creatinine - Last 168 Hours 10/15/23 09:18 Creatinine 0.70 Estimated CrCl and GFR - Last 168 Hours 10/15/23 09:18 Estim Creat Clear Calc 142.0 Estimated GFR > 60 Vancomycin Loading Dose: 1750 MG Current Vancomycin Dosing Regimen: 1250 MG Q12H Vancomycin Monitoring using AUC goal of 400 - 600 range with trough as surrogate marker: AUC = 485 TROUGH=13.4 Date and Time for next Vancomycin Level to be drawn: 10/16/23 @2100 Pharmacist Comments on Vancomycin Plan: Vancomycin dosing will take advantage of [employer] as a clinical decision support tool that uses Bayesian modeling to calculate individual patient's pharmacokinetic parameters and forecast the patient's drug concentration time course with the target goal AUC 24 range of 400 - 600 mg/L/hr.
[2023-10-15 15:13] VITALS: BP 127/68; PULSE 56; RESP 20; TEMP 36.6; O2SAT 98
--- NOTE | 2023-10-15 15:41 | HO.WOUND ---
Wound Consult: Initial 33yr old? [place] [facility] [place] - See progress notes and H&P for detailed history.? Wound consult placed for Right hand Laceration awaiting surgical intervention - direct care team nor patient devine of when surgical intervention is planned for.? Patient agreeable to assessment and photo documentation.? Upon assessment patient was not able to tolerate packing he reports excessive pain 10/10 and packing was removed - cleansed and dry Abd applied with gauze wrap. awaiting surgical intervention. Right Hand Etiology: Laceration Measurements: 0.4cm x 3cm x 0.4cm Wound Bed: difficult to visualize two open locations communicate under intact skin Drainage / Odor: serosang noted on dressing when removed Edges: ? unattached and well defined Clementina wound: ?+swelling and mild erythema - No Induration, Fluctuance noted Pain: extreme pain when assessed mild pain at baseline Goals of Treatment: ? Dry dressing in place - will defer to surgical team Recommendations: 1. Right Hand - Cleanse with NS, pat dry. Cover with ABD pad and gauze wrap, change daily. Re-consult wound care Nurse for wound deterioration or wound changes.
[2023-10-15] MEDS: HYDROmorphone HCl 2 MG TABLET PO (16:28)
[2023-10-15] MEDS: 0.9 % Sodium Chloride Flush 3 ML SYRINGE IVFLUSH ×2 (16:29→19:38)
--- NOTE | 2023-10-15 17:06 | PM.CNOR ---
History of Present Illness HPI Consult date: 10/15/23 Chief complaint: right hand cellulitis that failed outpatient thera Narrative: Patient is a 33 YO male who presents to the emergency department for evaluation of laceration of dorsal aspect of R hand over the 3rd and 4th metacarpal shaft with associated cellulitis. Patient was sent to emergency department after calling Orthopedics office this morning for advice on how to best approached the situation. Patient reports the injury occurred 5 days ago. Patient reports that he fell through a glass coffee table and that the glass broke, causing this laceration. Patient also reports that he is unable to fully extend the middle digit of his right hand since time of laceration. Patient reports that, since time of injury he has had increasing pain, redness, and swelling both at the area of the laceration and moving down into the dorsal aspect of his right forearm. The patient also reports that the redness on the dorsal aspect of his hand and forearm has been spreading over the last few days. Patient reports no fever or chills at this time Patient previously presented to the ER on 10/14/2023, but refused admission for IV antibiotics at this time due to ?having to get some stuff done at home first?. However, patient was amenable to possible admission at this time, so the decision was made to send him to the ED. Review of Systems Review of Systems: Yes all other systems are reviewed and are negative [facility] Past Medical History Medical History (Updated 10/15/23 @ 12:46 by NALINI Sheikh) History of seizures Social History Social History Household Members: None Housing: Condominium Do you presently have visiting nurse or other home services: No Alcohol intake: current Comment: refusing interventions. Patient Tobacco Use Status: Never used Tobacco Smoked in Last 30 Days: No Use of substances other than those prescribed or required for medical reasons: Yes Substance Use Type: Marijuana Substance Use Frequency: Occasionally Last Used Substance: Days (ago) Currently Displaying Signs/Symptoms of Drug Intoxication Withdrawal: No Have you been hit, kicked, punched, or otherwise hurt by someone within the past year? If so, by whom?: No Do you feel safe in your current relationship?: No Current Relationship Is there a partner from a previous relationship who is making you feel unsafe now?: No Are you made to feel afraid or neglected: No Advance Directives: No Advance Directives Information Provided: Yes Do you have a plan to hurt others: No Plan Recently lost weight without trying: No How much weight loss: Not applicable Eating poorly because of decreased appetite: No Nutrition screen score: 0 Nutrition Risks: No Nutritional Risk Poor oral hygiene: No Meds Allergies Allergy/AdvReac Type Severity Reaction Status Date / Time kiwi Allergy Severe Anaphylaxis Verified 10/15/23 08:41 codeine Allergy Unknown HIVES Verified 10/15/23 08:41 banana Allergy Anaphylaxis Verified 10/15/23 08:41 Codeine Sulfate Allergy Unknown Anaphylaxis Uncoded 10/15/23 08:41 Codeine Phosphate Allergy Anaphylaxis Uncoded 10/15/23 08:41 Active Medications: Current Medications Acetaminophen (Acetaminophen 325 Mg Tablet) 650 mg PO Q6H PRN PRN Reason: Pain, Mild (Pain Scale 1-3), fever or headache Calcium Carbonate (Calcium Carbonate 750 Mg Tab.Chew) 750 mg PO Q4H PRN PRN Reason: Heartburn Hydromorphone HCl (Hydromorphone Hcl 2 Mg Tablet) 2 mg PO Q4H PRN PRN Reason: Pain, Severe (Pain Scale 7-10) Last Admin: 10/15/23 16:28 Dose: 2 mg Vancomycin HCl 1,250 mg/ (Sodium Chloride) 250 mls @ 166.667 mls/hr IV Q12H BELKYS Magnesium Hydroxide (Milk Of Magnesia 30 Ml Oral.Susp) 30 ml PO DAILY PRN PRN Reason: Constipation Melatonin (Melatonin 3 Mg Tablet) 6 mg PO BEDTIME PRN PRN Reason: Insomnia Pharmacy Consult (Consult Rx Vancomycin Dosing) 1 each MISCELLANE DAILY PRN PRN Reason: Consult order Sodium Chloride (0.9 % Sodium Chloride Flush 3 Ml Syringe) 3 ml IVFLUSH QSHIFT BELKYS Last Admin: 10/15/23 16:29 Dose: 3 ml Home Medications ?Medication ?Instructions ?Recorded ?Confirmed ?Last Taken ?Type No Known Home Meds 10/15/23 10/15/23 Unknown History Physical Exam Vital Signs: Vital Signs: Last Vital Signs Temp 97.8 F 10/15/23 15:13 Pulse 56 10/15/23 15:13 Resp 20 10/15/23 15:13 BP 127/68 10/15/23 15:13 Pulse Ox 98 10/15/23 15:13 O2 Del Method Room Air 10/15/23 15:13 BMI result Body Mass Index 21.6 Const: Other: Patient is alert, oriented, cooperative, and in no acute distress HEENT: Head: Yes normocephalic and Yes atraumatic Resp: Effort & Inspection: normal respiratory effort and able to speak in complete sentences Cardio: Jugular venous distension: no JVD Neuro: General: gait normal Cognition (Neuro): normal cognition Extrem: Other: Patient is alert, oriented, and in no acute distress. Neuro: Median, ulnar, radial nerves sensory intact and sensation is normal to the tips of all digits. Vascular: Cap refill brisk Pain: Patient reports pain and tenderness of the dorsal aspect of the right hand. No tenderness over the MCP joints or in the fingers No tenderness of the wrist No pain with axial loading of the wrist ROM: Patient has limited extension of the right middle finger, full extension minus approximately 20 degrees Patient is unable to extend the digit further Able to passively extend the digit fully with pain Full active ROM of all other digits of the R hand Skin: 4-5 cm transverse laceration noted on the dorsal aspect of the R hand Small, 1-2 cm laceration just radial to this larger laceration Erythema noted, extending from the dorsal hand, through the wrist, into the dorsal mid-forearm Edema of the dorsal hand and wrist also noted Psych: Appears grossly normal Affect normal Attitude cooperative Psych: Appearance: grossly normal Mental Status: mental status grossly normal Results Labs 10/15/23 09:18 10/15/23 09:18 Labs: Abnormal lab results 10/15/23 Range/Units 09:18 RBC 4.12 L (4.60-5.80) X10*6/uL Hgb 12.7 L (14.0-18.0) g/dl Hct 36.4 L (42.0-52.0) % MPV 9.0 L (9.4-12.4) fL Immature Gran % (Auto) 0.6 H (0.0-0.4) % Abs Immat Gran (auto) 0.06 H (0.00-0.03) X10*3/uL ESR 44 H (0-15) MM/HR C-Reactive Protein 12.29 H (< or = 0.50) mg/dL H & H 10/15/23 Range/Units 09:18 Hgb 12.7 L (14.0-18.0) g/dl Hct 36.4 L (42.0-52.0) % All other labs normal. Diagnostic results Wrist/Hand x-ray: image reviewed (X-rays obtained in the office today and independently reviewed by me, Ryan Quesada PA-C, demonstrate no fracture, acute bony abnormality, or radiographic evidence of osteomyelitis. ) Assessment and Plan (1) Tendon dysfunction: Status: Acute (2) Cellulitis of right arm: Status: Acute (3) Cellulitis of hand: Status: Acute Plan 1. Extensor Tendon dysfunction, right middle finger Patient unable to fully extend R middle finger since time of injury High index of suspicion for extensor tendon injury However, surgery to treat this cannot be performed until infection has been treated and begun to resolve Therefore, recommendation is to admit to medicine for IV antibiotics to treat cellulitis and clear infection of wound base Patient will follow-up in orthopedics office on Friday with myself or Dr. Amado pending discharge from hospital for further evaluation of extensor tendon injury, and to discuss treatment options 2. Cellulitis of right arm 3. Cellulitis of hand, right Cellulitis reported to be spreading over the patient's dorsal hand and forearm Patient to be admitted to medicine for IV antibiotics for treatment of cellulitis. Procedures Date of Service Date of Service: 10/16/23
[2023-10-15 19:35] VITALS: BP 126/65; PULSE 63; RESP 20; TEMP 36.3; O2SAT 99
[2023-10-15] MEDS: Ibuprofen 400 MG TABLET PO (19:37)
[2023-10-16] MEDS: vancomycin HCL 1,250 MG in 0.9 % Sodium Chloride 250 ML 166.67 MG IV ×2 (02:00→11:35)
[2023-10-16] MEDS: Acetaminophen 325 MG TABLET 975 MG PO (02:06)
[2023-10-16] MEDS: Ibuprofen 400 MG TABLET PO ×2 (02:06→16:17)
[2023-10-16 04:00] VITALS: BP 102/59; PULSE 70; RESP 20; TEMP 36.1; O2SAT 99
--- NOTE | 2023-10-16 06:37 | PC.NURSE ---
[facility] downtime from 01:00-06:00, unable to scan patient bands and medications during this time. No events overnight. patient safety and comfort maintained, call tsai in reach.
--- NOTE | 2023-10-16 06:58 | PC.NURSE ---
High fall risk, however refusing interventions.
[2023-10-16] MEDS: 0.9 % Sodium Chloride Flush 3 ML SYRINGE IVFLUSH ×2 (07:03→13:13)
[2023-10-16 07:16] VITALS: BP 110/67; PULSE 60; RESP 13; TEMP 36.3; O2SAT 98
[2023-10-16 08:39] LABS: Creatinine Clr Calc Pharmacy 140.4; Estimated Glomerular Filt Rate > 60
--- NOTE | 2023-10-16 09:25 | P.PNOP_ITS ---
Subjective Subjective Date of Service: 10/16/23 Interval history: Is a 33-year-old male admitted to the hospital for laceration of dorsal right hand over the 3rd metacarpal shaft, with associated cellulitis. Patient is currently unable to extend his right middle finger fully, concerning for extensor tendon laceration. However, any surgical treatment needed for this extensor tendon injury must wait until overlying infection of the dorsal right hand has been treated. Patient reports that he is able to flex and extend all other digits fully. Patient is currently on IV antibiotics for treatment of cellulitis in this area. Patient reports that Redness has decreased significantly from yesterday, however he feels that his hand and forearm have remained swollen. Patient questions what the plan for the wound care is, as he reported that attempts at packing the wound yesterday did not go well. Patient also expresses concern that his insert tendon has retracted up into the proximal forearm. Patient seen with Dr. Amado today. Physical Exam Vital Signs: Vital Signs: Last Vital Signs Temp 97.3 F 10/16/23 07:16 Pulse 60 10/16/23 07:16 Resp 13 10/16/23 07:16 BP 110/67 10/16/23 07:16 Pulse Ox 98 10/16/23 07:16 O2 Del Method Room Air 10/16/23 07:16 BMI result Body Mass Index 21.6 Const: Other: Patient is alert, oriented, cooperative, and in no acute distress HEENT: Head: Yes normocephalic and Yes atraumatic Resp: Effort & Inspection: normal respiratory effort and able to speak in complete sentences Cardio: Jugular venous distension: no JVD Neuro: General: gait normal Cognition (Neuro): normal cognition Extrem: Other: Patient is alert, oriented, and in no acute distress. Neuro: Median, ulnar, radial nerves sensory intact and sensation is normal to the tips of all digits. Vascular: Cap refill brisk Pain: Patient reports pain and tenderness of the dorsal aspect of the right hand. No tenderness over the MCP joints or in the fingers No tenderness of the wrist No pain with axial loading of the wrist ROM: Patient has limited extension of the right middle finger, full extension minus approximately 20 degrees Patient is unable to extend the digit further Able to passively extend the digit fully with pain Full active ROM of all other digits of the R hand Skin: 4-5 cm transverse laceration noted on th e dorsal aspect of the R hand Small, 1-2 cm laceration just radial to this larger laceration Erythema noted in the dorsal hand, improved from yesterday Erythema in the forearm no longer grossly evident Edema of the dorsal hand and wrist also noted, but improved from yesterday Psych: Appears grossly normal Affect normal Attitude cooperative Psych: Appearance: grossly normal Mental Status: mental status grossly normal Procedures Date of Service Date of Service: 10/16/23 Progress Note: A&P Assessment and plan (1) Cellulitis of right arm: Status: Acute (2) Cellulitis of hand: Status: Acute (3) Tendon dysfunction: Status: Acute Plan 1. Cellulitis of right arm 2. Cellulitis of hand, right Patient currently admitted to medicine for IV antibiotics for treatment of cellulitis. Cellulitis appears to be improving, with marked decrease his in both erythema and edema as compared to yesterday Continue IV antibiotics until medicine feels there is adequate improvement in infection, then discharge on oral antibiotics 1. Extensor Tendon dysfunction, right middle finger Patient unable to fully extend R middle finger since time of injury High index of suspicion for extensor tendon injury However, surgery to treat this cannot be performed until infection has been treated and begun to resolve Patient educated that it is highly unlikely that the tendon has retracted as far as the proximal forearm, but may have retracted back into the proximal hand or very distal forearm. Patient will follow-up in orthopedics office on Friday pending discharge from hospital for further evaluation of extensor tendon injury, and to discuss treatment options Time Spent With Patient Time: Total time managing care of this patient today ____ minutes. Quality Stroke Does the patient have a stroke diagnosis?: No VTE Prior VTE?: No VTE Risk Level:: Medical - moderate - high VTE Device Contraindication: N/A - Device Ordered VTE Drug Contraindication: Treatment Not Indicated
--- NOTE | 2023-10-16 10:20 | P.PNIM_ITS ---
Subjective Subjective Date of Service: 10/16/23 Interval History: f/u on hand cellulitis with tendon dysfunction d/t glass injury Physical Exam 2 Vital Signs: Vital Signs: Last Vital Signs Temp 97.3 F 10/16/23 07:16 Pulse 60 10/16/23 07:16 Resp 13 10/16/23 07:16 BP 110/67 10/16/23 07:16 Pulse Ox 98 10/16/23 07:16 O2 Del Method Room Air 10/16/23 07:16 BMI result Body Mass Index 21.6 General: AO X 3, no acute distress Resp: CTA bilateral CVS: S1,S2,RRR GI: +BS, NT, no distention Skin: Neuro: motor grossly intact Psych: appropriate affect Objective Data Active Medications Acetaminophen (Acetaminophen 325 Mg Tablet) 975 mg PO Q6H PRN PRN Reason: Pain, Mild (Pain Scale 1-3), fever or headache Last Admin: 10/16/23 02:06 Dose: 975 mg Documented By: SYLVIE Comments: medication not scanned, patient band not scanned r/t downtime 01:00-06:00. Calcium Carbonate (Calcium Carbonate 750 Mg Tab.Chew) 750 mg PO Q4H PRN PRN Reason: Heartburn Hydromorphone HCl (Hydromorphone Hcl 2 Mg Tablet) 1 mg PO Q4H PRN PRN Reason: Pain, Severe (Pain Scale 7-10) Vancomycin HCl 1,250 mg/ (Sodium Chloride) 250 mls @ 166.667 mls/hr IV Q12H BELKYS Last Infusion: 10/16/23 03:30 Dose: Infused Documented By: SYLVIE Ibuprofen (Ibuprofen 400 Mg Tablet) 400 mg PO Q4H PRN PRN Reason: Pain, Severe (Pain Scale 7-10) Last Admin: 10/16/23 02:06 Dose: 400 mg Documented By: SYLVIE Comments: medication not scanned, patient band not scanned r/t downtime 01:00-06:00 Magnesium Hydroxide (Milk Of Magnesia 30 Ml Oral.Susp) 30 ml PO DAILY PRN PRN Reason: Constipation Melatonin (Melatonin 3 Mg Tablet) 6 mg PO BEDTIME PRN PRN Reason: Insomnia Pharmacy Consult (Consult Rx Vancomycin Dosing) 1 each MISCELLANE DAILY PRN PRN Reason: Consult order Sodium Chloride (0.9 % Sodium Chloride Flush 3 Ml Syringe) 3 ml IVFLUSH QSHIFT [facility] Last Admin: 10/16/23 07:03 Dose: 3 ml Documented By: ZACH Labs 10/15/23 09:18 10/16/23 07:45 Labs: Laboratory Results - last 24 hr 10/16/23 07:45 Hold Purple Top SEE NOTE Estim Creat Clear Calc 140.4 Estimated GFR > 60 Assessment and Plan (1) Tendon dysfunction: Status: Acute (2) Cellulitis of hand: Status: Acute Plan 33-year-old male with a PMH significant for?hx of seizures not on home meds who presents to the ED for evaluation of worsening right hand cellulitis that failed outpatient Doxy Right hand lacerations with cellulitis with Extensor Tendon dysfunction, right middle finger d/t glass injury -Continue IV Abx for 1 more day and consider transitioning to PP -ID consult -Ortho to follow up on outpatient basis for possible tendon repair once infection resolved. Hx of Seizures Patient reports 2 episodes of grand mal seizures, last in 07/2023 Reports workup has been negative, unclear etiology Not on home meds, not following with Neurology Advise not to drive and should follow up with a neurologist Full Code DVT Prophylaxis: low riks, amubating need for inpatient: IV Abx for infected hand Quality Stroke Does the patient have a stroke diagnosis?: No VTE Prior VTE?: No VTE Risk Level:: Medical - moderate - high VTE Device Contraindication: N/A - Device Ordered VTE Drug Contraindication: Treatment Not Indicated
--- NOTE | 2023-10-16 12:15 | MHC.CM.PN ---
Patient lives in an apartment alone. Functionally independent. Denies use of DME or services. No PCP. [facility] [place] Physician Brochure provided to patient. Patient reports he has an HCP listing his mother, Mary Anne, as HCA. Copy requested. Pt will bring to ortho appt next week. DP: Per MD, one more day IV abx. DC tomorrow, self care, on PO abx and f/u w/ ortho next week. Family to transport. CM will continue to follow.
[2023-10-16 16:00] VITALS: BP 112/60; PULSE 63; RESP 13; TEMP 36.4; O2SAT 98
--- NOTE | 2023-10-16 18:50 | P.DS_ITS ---
DS: Providers Provider Date of Service: 10/16/23 Date of admission: 10/15/23 11:39 Primary care physician: None Physician Consults: 10/15/23 11:45 Consult to Orthopedics Routine Consulting Provider: [facility] [place] [facility] Reason for consultation: Right hand lacerations 10/15/23 13:14 Consult to Wound Care Routine Reason for consultation: open wound to right hand 10/16/23 10:28 Consult to Infectious Diseases Routine Consulting Provider: [facility] [place] [facility] Reason for consultation: hand cellulitis Has provider been notified: No DS: Diagnosis Discharge Diagnosis (1) Tendon dysfunction: Status: Acute (2) Cellulitis of hand: Status: Acute DS: Summary Hospital Course Hospital Course: admission hpi Chief Complaint: Worsening cellulitis, hand laceration Pt is a 33-year-old male with a PMH significant for?hx of seizures not on home meds who presents to the ED for evaluation of worsening right hand cellulitis. ?Patient reports he tripped and fell in his living room 4 days prior on Friday and braced his fall with his right hand which went through a glass coffee table. Patient suffered multiple lacerations to the dorsal aspect of his right hand. Did not initially seek medical attention for his injury, but cleaned out his wounds and wrapped his hand in a clean bandage. Took ibuprofen for pain. Noticed increased swelling and redness in hand, some purulent discharge, and had difficulty with moving third digit, all of which prompted his visit to the ED yesterday evening. Imaging of right hand was negative for acute fracture or subluxation. Orthopedics was consulted who felt patient should be admitted to the medical services, but patient did not want to stay in the hospital and so was discharged on doxycycline p.o.. Orthopedics reached out to patient this morning and told him he needed to come back to the ED for admission and IV antibiotics prior to any surgical procedure. Patient states redness on his right had increased overnight. Continues to have difficulty moving his middle finger, especially with flexion. Also reports some numbness to proximal aspect of 3rd digit. Denies fever or chills. States he occasionally gets palpitations, especially after energy drinks. Currently no chest pain or pressure. Denies shortness or breath. No nausea, vomiting, abdominal pain. In the ED pt was afebrile but tachycardic up to 105, vitals otherwise WNL. Labs were significant for elevated ESR 44 and C-reactive protein 12.29, otherwise grossly unremarkable. No leukocytosis. Stable H&H. No significant electrolyte abnormalities. Lactic acid WNL at 0.7. Renal and hepatic function baseline. Pt was treated with Zosyn and acetaminophen. Pt will be admitted to the hospital for treatment and further evaluation of right hand laceration and cellulitis that failed outpatient therapy. Hospital course: Here's a corrected version of the text: The patient was admitted and treated with IV antibiotics (Zosyn in the ED and continued on vancomycin). He was evaluated by hand surgery, which recommended potential repair of the dysfunctional tendon once the infection is resolved. There was improvement with antibiotics, so he will be discharged home with oral Augmentin and Doxycycline for 1 week, as recommended by Infectious Disease. Follow-up with hand surgery (Dr. Amado) is scheduled for next week (October 20). Time Attestation Discharge Coordination Time (in mins): 35 Quality: Safe Use of Opioids Does Pt have an Active Cancer Diagnosis on the Problem List?: No Quality: Stroke Does the patient have a stroke diagnosis?: No Physical Exam Vital Signs: Vital Signs: Last Vital Signs Temp 97.5 F 10/16/23 16:00 Pulse 63 10/16/23 16:00 Resp 13 10/16/23 16:00 BP 112/60 10/16/23 16:00 Pulse Ox 98 10/16/23 16:00 O2 Del Method Room Air 10/16/23 16:00 BMI result Body Mass Index 21.6 see progress note DS: Data Data Completed and Pending Labs on day of discharge: Laboratory Results - last 24 hr 10/16/23 07:45 Hold Purple Top SEE NOTE Creatinine 0.71 Estim Creat Clear Calc 140.4 Estimated GFR > 60 Preliminary micro results at discharge 10/15/23 09:25 Blood Culture - Preliminary Blood - Venous No growth after 24 hours. 10/15/23 09:18 Blood Culture - Preliminary Blood - Venous No growth after 24 hours. Discharge Plan Discharge Anticipated Discharge Date/Time: 10/16/23 18:43 Patient Disposition: Home, Self-Care Discharge Diagnosis: Cellulitis of the right hand with tendon dsyfunction Referrals: Physician,None [Primary Care Provider] - 1 Week Makayla Amado MD [Physician] - 1 Week Discharge Medications: New amoxicillin-pot clavulanate [Augmentin XR] 1,000-62.5 mg tablet extended release 12 hr 1 tab PO BID Qty: 15 0RF doxycycline monohydrate 100 mg capsule 100 mg PO BID Qty: 15 0RF Discharge Orders: Discharge Order (Routine); Ordered 10/16/23 Ordered By: Roberto Martinez Diet: Advance to usual diet Activity on Discharge: As tolerated Stand Alone Forms: Patient Portal Discharge page Print Language: Egyptian Care Plan Goals: Healing of cellulitis and return of full function of the hand Health Concerns: Cellulitis of the hand and tendon dysfuntion Plan of Treatment: Take Doxycyline and Augmentin as recommended and follow with the orthopedic office of Dr. Amado on Friday10/21/23 continue dry dressing to the wound daily Assessment: see above Patient Instructions: Doxycycline (By mouth), Amoxicillin/Clavulanate Potassium (By mouth), Cellulitis (DC)
[2023-10-16] MEDS: Doxycycline Monohydrate 100 MG CAPSULE PO (18:57)
[2023-10-16] MEDS: Amoxicillin/Potassium Clav 875 MG TABLET PO (18:57)
== END 2023-10-16 19:07 | disposition home or self-care (01) | DRG 383 ==
LOC: HO.ED 10:21 → HO.EDOVER 11:50 → HO.S3 12:02
PROVIDERS: Physician Assistant Medical; Admitting Provider Student in an Organized Health Care Education/Training Program; Emergency Provider Emergency Medicine; Visit Provider Internal Medicine
DX: L03.113 Cellulitis of right upper limb (principal); S66.322A Laceration of extensor muscle, fascia and tendon of right middle finger at wrist and hand level, initial encounter; W01.110A Fall on same level from slipping, tripping and stumbling with subsequent striking against sharp glass, initial encounter; Z86.69 Personal history of other diseases of the nervous system and sense organs
CPT/HCPCS: 36415; 80053; 82565; 83605; 85025; 85652; 86140; 87040; 99221; 99285; J2543; J3370; J3371

== ENCOUNTER → 2023-10-15 11:39 | Outpatient (BNV) | payer MEDICAID, SELFPAY | PROVIDERS: Admitting Provider Student in an Organized Health Care Education/Training Program; Emergency Provider Emergency Medicine | DX: M67.90 Unspecified disorder of synovium and tendon, unspecified site (principal); L03.113 Cellulitis of right upper limb; L03.119 Cellulitis of unspecified part of limb | CPT/HCPCS: 99222; 99232 ==

== ENCOUNTER → 2023-10-15 11:39 | Outpatient (BNV) | payer MEDICAID, SELFPAY | PROVIDERS: Admitting Provider Student in an Organized Health Care Education/Training Program; Emergency Provider Emergency Medicine; Visit Provider Student in an Organized Health Care Education/Training Program | DX: M67.90 Unspecified disorder of synovium and tendon, unspecified site (principal); L03.113 Cellulitis of right upper limb | CPT/HCPCS: 99223; 99239 ==

== ENCOUNTER 2023-10-21 09:06 | Outpatient (AMB) | payer MEDICAID, SELFPAY ==
--- NOTE | 2023-10-21 09:16 | A.OFFVIS_ITS ---
Vital Signs 10/21/23 09:21 Height 5 ft 9 in Weight 145 lb BMI 21.4 Intake Visit Reasons: ED f/u r dors hand lac w/ ext tendon injury m.f. Intake Note: Austin a 33 year old right hand dominant male who presents today for an ER follow up of right hand laceration, MF tendon injury. Patient reports that he fell through a glass coffee table on 10/11/2023, he received care by EMS responders. He presented to [facility] [place] ER a few days later where xrays were taken, dressing applied and antibiotics were prescribed. Currently he has tenderness in his whole hand. He continues to apply dressing changes twice daily. Allergies kiwi Allergy (Severe, Verified 10/21/23 09:28) Anaphylaxis codeine Allergy (Unknown, Verified 10/21/23 09:28) HIVES banana Allergy (Verified 10/21/23 09:28) Anaphylaxis Codeine Sulfate Allergy (Unknown, Uncoded 10/21/23 09:28) Anaphylaxis Codeine Phosphate Allergy (Uncoded 10/21/23 09:28) Anaphylaxis HPI HPI ED f/u r dors hand lac w/ ext tendon injury m.f.: Details: Patient is a 33-year-old male who presents to clinic today for follow-up evaluation of right dorsal hand laceration with associated extensor tendon injury and cellulitis, date of injury 10/11/2023. Patient was previously admitted to the hospital for treatment of cellulitis with IV antibiotics, discharge 10/16/2023 with p.o. doxycycline and Augmentin. Today, the patient reports the erythema previously present in his dorsal hand has gone down significantly, as has the edema of his dorsal hand. Patient reports that he is still unable to fully extend the middle and ring fingers of his right hand. Patient also inquires about the postoperative recovery of potential surgery to repair the extensor tendons, as he has a trip planned to [place] for work and would like to know if he will still be able to attend to this. [facility] Medical History (Updated 10/15/23 @ 12:46 by NALINI Sheikh) History of seizures Social History (Updated 10/21/23 @ 09:20 by MELODY Sykes) Household Members: None Housing: Condominium Do you presently have visiting nurse or other home services: No Alcohol intake: current Comment: refusing interventions. 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 Review of Systems Const All systems reviewed & are unremarkable except as noted in HPI and below Physical Exam Vital Signs: BMI result Body Mass Index 21.4 Const Other: Patient is alert, oriented, cooperative, and in no acute distress HEENT Head: Yes normocephalic and Yes atraumatic Resp Effort & Inspection: normal respiratory effort and able to speak in complete sentences Cardio Jugular venous distension: no JVD Neuro General: gait normal Cognition (Neuro): normal cognition Psych Appearance: grossly normal Mental Status: mental status grossly normal Results Reviewed Results Reviewed: X-rays obtained in the ED on 10/14/2023 and independently reviewed by me, Ryan Quesada PA-C, demonstrate no fracture or acute bony abnormality. Assessment & Plan Assessment & Plan (1) Tendon dysfunction: Code(s): M67.90 - Unspecified disorder of synovium and tendon, unspecified site Category: Medical (2) Cellulitis of hand: Code(s): L03.119 - Cellulitis of unspecified part of limb Category: Medical (3) Cellulitis of right arm: Code(s): L03.113 - Cellulitis of right upper limb Category: Medical Plan 1. Extensor tendon dysfunction of right middle and ring fingers Date of injury 10/11/2023 At this time, overlying cellulitis about the area of the laceration has improved greatly with antibiotic therapy Surgery to repair extensor tendons of the right hand is indicated in this pat ient at this time I educated the patient about the condition. I discussed both operative and nonoperative treatment options. The patient would like to proceed with surgery. The risks and benefits of operative treatment were discussed with the patient and the patient wishes to proceed with surgery. These risks include, but are not limited to, risk of damage to blood vessels, nerves, tendons, infection, recurrence, incomplete relief of preoperative symptoms, persistent pain, possible need for further surgery, and the risks associated with regional blocks and/or anesthesia. Plan is to take the patient to the operating room on 10/27/2023 for the following procedures: 1. Right hand irrigation and debridement 2. Right hand extensor tendon repairs All of the preoperative paperwork including the consent was discussed today. All of the patient's questions were answered in the clinic today. The patient understands that they will be in contact with our surgical appliance fitter to discuss scheduling their procedure. Patient expresses concerns as to when he will be able to use his hand and return to work. Patient is educated that his right hand will be placed in a splint for at least 6 weeks, and he will have a 2 lb weight limit in his hand for at least that time. Patient is amenable to this plan. Patient is advised to avoid travel to [place] in the immediate postoperative period, and is advised to postpone any potential trips to [place] until approximately next month. Patient denies diabetes, blood thinners, asthma, heart issues, lung issues, kidney issues, or current smoking. 2. Cellulitis of right hand 3. Cellulitis of right arm Symptoms have greatly improved from time of admission to the hospital with both IV and p.o. antibiotics Continue current p.o. antibiotic regimen until DOS to prevent recurrence or worsening of infection Medications: Changed From amoxicillin-pot clavulanate 875-125 mg 1 tab PO BID 15 tabs 0RF To amoxicillin-pot clavulanate 875-125 mg 1 tab PO BID 12 tabs 0RF 6 days From doxycycline monohydrate 100 mg PO BID 15 caps 0RF To doxycycline monohydrate 100 mg PO BID 12 caps 0RF 6 days Coding Level of Care Code New Pt Level 4 (38769) Diagnoses Tendon dysfunction M67.90 Cellulitis of hand L03.119 Cellulitis of right arm L03.113
[2023-10-21 09:21] VITALS: BMI 21.4
== END 2023-10-21 11:27 | disposition home or self-care (01) ==
DX: M67.90 Unspecified disorder of synovium and tendon, unspecified site (principal); L03.113 Cellulitis of right upper limb
CPT/HCPCS: 99204

== ENCOUNTER → 2023-10-21 09:06 | Outpatient (BNVA) | payer MEDICAID, SELFPAY | DX: S61.411D Laceration without foreign body of right hand, subsequent encounter (principal); M67.941 Unspecified disorder of synovium and tendon, right hand; L03.113 Cellulitis of right upper limb; W08.XXXD Fall from other furniture, subsequent encounter | CPT/HCPCS: 99212 ==

== ENCOUNTER 2024-09-25 10:20 | Emergency (ER) | payer MEDICAID, SELFPAY ==
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
--- NOTE | 2024-09-25 10:24 | ECG_ITS ---
Test Reason : SEIZURE Blood Pressure : */* mmHG Vent. Rate : 52 BPM Atrial Rate : 52 BPM P-R Int : 162 ms QRS Dur : 76 ms QT Int : 422 ms P-R-T Axes : 70 79 57 degrees QTcB Int : 392 ms Sinus bradycardia Otherwise normal ECG When compared with ECG of 01-Aug-2023 04:04, ST no longer elevated in Anterior leads Referred By: Christa Abarca Electronically Signed By: FAN KAYE
[2024-09-25 10:28] VITALS: BP 95/55; PULSE 60
[2024-09-25 10:40] VITALS: BP 85/39; PULSE 55; RESP 19; TEMP 36.5; O2SAT 95
[2024-09-25 10:44] VITALS: BP 99/56; PULSE 51; RESP 12; O2SAT 97
[2024-09-25] MEDS: 0.9 % Sodium Chloride 1,000 ML 999 ML IV (10:47)
[2024-09-25] MEDS: levETIRAcetam in NaCl (iso-os) 1,000 MG/100 ML PIGGYBACK 400 MG IV (10:59)
[2024-09-25 11:37] LABS: MANUAL DIFF FLAG NO
[2024-09-25 11:43] LABS: Basophils Percent Auto 0.3 % (0-2); Eosinophils Percent Auto 0.4 % (0-4); Hematocrit 41.4 % (42.0-52.0); Imm Gran Abs Auto 0.04 X10*3/uL (0.00-0.03); Imm Gran Pct Auto 0.4 % (0.0-0.4); Lymphocytes Absolute Auto 1.2 X10*3/uL (1.2-4.9); Lymphocytes Percent Auto 10.6 % (20-40); Mean Corpuscular HGB Conc 33.8 g/dl (31.0-36.0); Mean Corpuscular Hemoglobin 30.2 pg (27.0-33.0); Mean Corpuscular Volume 89.2 fL (80.0-98.0); Mean Platelet Volume 9.3 fL (9.4-12.4); Monocytes Percent Auto 8.7 % (2-11); Neutrophils Percent Auto 79.6 % (45-73); Platelet Count 225 X10*3/uL (160-400); Red Blood Count 4.64 X10*6/uL (4.60-5.80); Red Cell Distribution Width 13.3 % (11.0-16.0); White Blood Count 11.3 X10*3/uL (4.8-10.8)
[2024-09-25 11:51] LABS: Ethanol < 10 mg/dL
[2024-09-25 11:53] LABS: Alanine Aminotransferase 12 U/L (0-40); Albumin Level 4.2 g/dL (3.5-5.0); Alkaline Phosphatase 56 U/L (39-117); Anion Gap 8 (12-20); Aspartate Amino Transferase 17 U/L (5-37); Bilirubin Total 0.3 mg/dL (0.0-1.0); Blood Urea Nitrogen 9 mg/dL (9-16); Calcium 8.2 mg/dL (8.4-10.2); Carbon Dioxide 26 mmol/L (22-29); Chloride 109 mmol/L (96-108); Creatinine Clr Calc Pharmacy 98.8; Estimated Glomerular Filt Rate > 60; Glucose Random 101 mg/dL (60-115); Magnesium 2.2 mg/dL (1.6-2.6); Potassium 3.9 mmol/L (3.3-5.1); Sodium 139 mmol/L (135-145)
[2024-09-25 12:17] LABS: Influenza A PCR NEGATIVE (Negative); Influenza B PCR NEGATIVE (Negative); Resp Syncy Virus RNA Qual PCR NEGATIVE (Negative); SARS COV2 PCR INHOUSE NEGATIVE (Negative)
--- NOTE | 2024-09-25 14:02 | PC.NURSE ---
late entry: this RN notified after break that pt pulled his IV out and wanted to leave AMA. planned discussion with pt, mom at bedside, Christy GARCIA and Dr. Silveira to discuss plan of care with pt and mom.
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
[2024-09-25 14:07] VITALS: BP 99/56; PULSE 51; RESP 12; TEMP 36.5; O2SAT 97
[2024-09-25 14:21] LABS: TSH reflex Free T4 0.95 uIU/mL (0.32-4.0)
--- NOTE | 2024-09-25 15:20 | PC.NURSE ---
this RN contacted [facility] to verbally report 51A and faxed 51A to local office.
== END 2024-09-25 14:00 | disposition left against medical advice (07) ==
PROVIDERS: Registered Nurse Emergency; Emergency Provider Emergency Medicine
DX: R56.9 Unspecified convulsions (principal); Z03.818 Encounter for observation for suspected exposure to other biological agents ruled out
CPT/HCPCS: 0241U; 36415; 70450; 80053; 80307; 83605; 83735; 84443; 85025; 93005; 96361; 96374; 99284; J1953

== ENCOUNTER → 2024-09-25 10:24 | Outpatient (BNV) | payer MEDICAID, SELFPAY | PROVIDERS: Emergency Provider Emergency Medicine; Visit Provider Internal Medicine | DX: R00.1 Bradycardia, unspecified (principal) | CPT/HCPCS: 93010 ==

== ENCOUNTER → 2024-09-25 10:50 | Outpatient (BNV) | payer MEDICAID, SELFPAY | PROVIDERS: Emergency Provider Emergency Medicine; Visit Provider Radiology Diagnostic Radiology | DX: R56.9 Unspecified convulsions (principal) | CPT/HCPCS: 70450 ==

== ENCOUNTER 2024-12-20 15:21 | Emergency (ER) | payer OTHER, SELFPAY ==
[2024-12-20 15:37] VITALS: BP 97/62; PULSE 60; RESP 18; TEMP 37; O2SAT 98; BMI 25.1
--- NOTE | 2024-12-20 15:42 | ED_ITS ---
HPI - General Adult General Chief complaint: Upper Respiratory Symptoms Stated complaint: ? Strep throat Time Seen by Provider: 12/20/24 15:41 Source: patient Mode of arrival: ambulatory Limitations: no limitations History of Present Illness ED Provider: Dru Mejia HPI narrative: 34 yold male presents to the ED for sore throat. Patient states also cough. patient states no chest pain or shortness of breah Related Data Previous Rx's ?Medication ?Instructions ?Recorded amoxicillin 875 mg-potassium 1 tab PO BID 6 days #12 t abs 10/21/23 clavulanate 125 mg tablet doxycycline monohydrate 100 mg 100 mg PO BID 6 days #1 2 caps 10/21/23 capsule levetiracetam 500 mg tablet 500 mg PO BID #60 tabs 11/12 Allergies Allergy/AdvReac Type Severity Reaction Status Date / Time kiwi Allergy Severe Anaphylaxis Verified 12/20/24 15:37 codeine Allergy Unknown HIVES Verified 12/20/24 15:37 banana Allergy Anaphylaxis Verified 12/20/24 15:37 tree nut Allergy Rash Verified 12/20/24 15:38 Codeine Sulfate Allergy Unknown Anaphylaxis Uncoded 12/20/24 15:37 Codeine Phosphate Allergy Anaphylaxis Uncoded 12/20/24 15:37 Review of Systems Review of Systems: sore throat and cough Yes all other systems are reviewed and are negative PMFSH Past Medical History Medical History (Updated 12/20/24 @ 17:04 by NALINI Medina) History of seizures Social History Social History (Updated 10/21/23 @ 09:20 by Maryan Sanabria Lanre) Household Members: None Housing: Condominium Do you presently have visiting nurse or other home services: No Alcohol intake: current Comment: refusing interventions. 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 Physical Exam ED Vital Signs: Vital Signs - 24 hr 12/20/24 15:37 Temperature 98.6 F Pulse Rate 60 Respiratory Rate 18 Blood Pressure 97/62 Pulse Oximetry 98 Oxygen Delivery Method Room Air BMI result Body Mass Index 25.1 Const General: cooperative, healthy appearing, comfortable, no acute distress, well developed, alert, awake and Physically active Orientation/consciousness: patient oriented x3 HENMT Head: Yes normal to inspection, Yes No palpable skull fracture present, Yes normocephalic and Yes atraumatic Ears: hearing grossly normal bilaterally, external ears normal, TM's normal bilaterally, TM normal on the right, TM normal on the left, EAC's normal, mastoids normal and no periauricular adenopathy Throat: Yes posterior oropharynx normal, Yes tonsils normal and Yes uvula midline Eyes General: appearance normal, both eyes and all related structures Neck Neck: Yes normal visual inspection, Yes full ROM, Yes no lymphadenopathy, Yes no meningeal signs, Yes trachea midline, Yes supple, No anterior neck swelling and No tender Chest Chest palpation & inspection: normal inspection of the chest and normal palpation of entire chest wall Resp Effort & Inspection: normal respiratory effort and able to speak in complete sentences Auscultation: clear to auscultation bilaterally Cardio Jugular venous distension: no JVD Heart sounds: S1 normal heart sound present and S2 normal heart sound present GI Inspection: Yes normal to inspection Palpation (GI): Soft to palpation, not firm, nontender, no guarding and not rig id General: Yes no CVA tenderness Back/Spine/Pelvis Back: no CVA tenderness and back tenderness Skin General skin exam: no rashes or lesions noted, elasticity normal and turgor normal Neuro General: patient oriented x3, gait normal, tone normal, moves all extremities, Normal light touch and pain sensation, no meningeal signs, no focal motor deficits and CN's II-XI intact bilaterally Extrem General: Yes normal to inspection, Yes full ROM and Yes capillary refill normal Psych Appearance: grossly normal, well kempt and not disheveled Course Course Course Narrative: RME: 54 year male presents to ED for runny nose coughing requesting COVID and strep tests. Patient states son have similar symptoms. SARs strep ordered. Medical Decision Making Medical Decision Making MDM Narrative: 54 year male presents to ED for runny nose coughing requesting COVID and strep tests. Patient states son have similar symptoms. SARs strep ordered. 4:29pm: Patient's positive COVID. Rest of the test negative Lab Data Labs: Lab Results 12/20/24 Range/Units 15:49 COVID-19 (GEORGE) Positive A (Negative) COVID-19 Clin Com See Note Influenza Type A (GARY) Negative (Negative) Influenza Type B (GARY) Negative (Negative) Influenza A & B Note See Note S. pyogenes GrpA GARY Negative (Negative) Discharge Plan Discharge Clinical Impression: COVID-19 Patient Disposition: Home, Self-Care Instructions: COVID-19 (Coronavirus Disease 2019) (ED) Additional Instructions: Recommend follow up with primary care provider. Return to the ED immediately for any chest pain, shortness of breath, coughing up blood, weakness, fever, or any other concerning symptoms. [id number]-hsxesmp Tylenol/Motrin can be used for fever/pain relief. Prescriptions: No Action levetiracetam 500 mg tablet 500 mg PO BID Qty: 60 1RF amoxicillin-pot clavulanate 875-125 mg tablet 1 tab PO BID 6 Days Qty: 12 0RF doxycycline monohydrate 100 mg capsule 100 mg PO BID 6 Days Qty: 12 0RF Stand Alone Forms: Work/School Release Interventions: ED Discharge Assessment Last Done: 12/20/24 17:14 Discharge Date/Time: 12/20/24 17:14 Print Language: Estonian
[2024-12-20 16:13] LABS: COVID-19 Test Positive (Negative); IDNOW Serial# 58CA691E; IDNOW Serial# 6674DD1D
[2024-12-20 16:14] LABS: Strep A Nucleic Acid Negative (Negative)
[2024-12-20 16:16] LABS: IDNOW Serial# 55D5AD1C; Influenza B2 Negative (Negative)
--- OUTSIDE RECORDS SUMMARY | 2024-12-20 16:54 | XMS_ITS | Clinical Summary ---
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 Name Role Phone Unavailable Primary Care Provider Unavailabl e Encounters Date Type Department Care Team Description 10/04/2024 Telephone [facility] [address] [place] [address] [phone] Cortez Atkinson MD [facility] - New Patient Assistance from Last 3 Months Social History Tobacco Use Types Packs/Day Years Used Date Smoking Tobacco: Never Assessed Sex and Gender Information Value Date Recorded Sex Assigned at Not on file Legal Sex Male 1:50 PM EST Gender Identity Not on file Sexual Orientation Not on file Plan of Treatment Health Maintenance Due Date Last Done Comments Depression Screening 1991 HIV Screening 1991 SDOH Screening 1991 Disability Screening 1991 Alcohol/Substance Use Screening 2003 Tobacco Screening 2003 Family Planning (PISQ) 07/08/2006 HPV Vaccines (1 - Male 3-dos e series) 07/08/2006 Hepatitis C Screening 07/08/2009 Hepatitis B Vaccines (1 of 3 - 19+ 3-dose series) 07/08/2010 COVID-19 Vaccine ( - 2023-2 5 season) 2024 Influenza Vaccine (#1) 2024 DTaP/Tdap/Td Vaccines (2 - T d or Tdap) 10/13/2033 10/14/2023 Zoster Vaccines (1 of 2) 07/08/2041 RSV Patients and Pa tients Aged 60 years or older (1 - 1-dose 75+ series) 07/08/2066 HIB Vaccines Aged Out No longer eligi ble based on patient's age to complete this topic Hepatitis A Vaccines Aged Out No long er eligible based on patient's age to complete this topic IPV Vaccines Aged Out No longer eligi ble based on patient's age to complete this topic Meningococcal B Vaccine Aged Out No l onger eligible based on patient's age to complete this topic Meningococcal Vaccine Aged Out No panchito jonna eligible based on patient's age to complete this topic Pneumococcal Vaccine: Pediat rics (0 to 5 Years) and At-Risk Patients (6 to 49) Years Aged Out No longer eligi ble based on patient's age to complete this topic RSV under 20 months Aged Out No longe r eligible based on patient's age to complete this topic Rotavirus Vaccines Aged Out No longer eligible based on patient's age to complete this topic
[2024-12-20 17:14] VITALS: BP 97/62; PULSE 60; RESP 18; TEMP 37; O2SAT 98
== END 2024-12-20 17:14 | disposition home or self-care (01) ==
PROVIDERS: Physician Assistant; Emergency Provider Emergency Medicine
DX: U07.1 COVID-19 (principal); J02.9 Acute pharyngitis, unspecified; R05.9 Cough, unspecified; F12.90 Cannabis use, unspecified, uncomplicated
CPT/HCPCS: 87502; 87635; 87651; 99282; 99283

== ENCOUNTER 2025-02-20 07:55 | Emergency (ER) | payer OTHER, SELFPAY ==
[2025-02-20] VITALS (10 sets, daily range): BP systolic 99–136; BP diastolic 60–80; PULSE 62–148; RESP 16–25; TEMP 36.8; O2SAT 94–98; BMI 21.4
--- NOTE | ~2025-02-20 | XR_ITS ---
CLINICAL HISTORY: seizure, r o aspiration vs PNA 1 view chest x-ray Comparison: None provided Findings: The lungs are clear without consolidation or effusion. Normal size heart. No acute fracture. IMPRESSION: No acute cardiopulmonary findings. This document has been electronically signed by: Kris Lara MD on 02/20/2025 09:23:09
--- NOTE | ~2025-02-20 | CT_ITS ---
CLINICAL HISTORY: seizure CT cervical spine without contrast Comparison: CT/SR - CT HEAD/BRAIN WO IV CON - 09/25/24 11:59 EDT Findings: Vertebral alignment is within normal limits. No significant degenerative change. No acute fractures or dislocations. No acute findings on limited view of the intracranial contents. Soft tissues of the neck are normal. No consolidation or effusion at the lung apices. IMPRESSION: No acute cervical spine findings. This document has been electronically signed by: Kris Lara MD on 02/20/2025 11:09:09
--- NOTE | ~2025-02-20 | CT_ITS ---
CLINICAL HISTORY: seizure CT head without contrast Comparison: CT/SR - CT HEAD/BRAIN WO IV CON - 09/25/24 11:[address]/REG/SR - CT HEAD/BRAIN WO IV CON - 08/01/23 05:52 EDT Findings: No intra-axial mass, midline shift, hydrocephalus, or acute hemorrhage. No significant atrophy-like change or white matter disease. The visualized paranasal sinuses and mastoid air cells are normal. Retained metallic foreign body within the right retrobulbar space is stable. Orbits are otherwise within normal limits. No skull fracture. IMPRESSION: No acute intracranial findings. This document has been electronically signed by: Kris Lara MD on 02/20/2025 11:13:07
--- NOTE | 2025-02-20 08:09 | ED_ITS ---
HPI - Seizure General Chief Complaint: Seizure Stated Complaint: WITNESSED SZ,ON KEPPRA PER EMS Time Seen by Provider: 02/20/25 08:09 Source: patient and RN notes reviewed Mode of arrival: ambulatory Limitations: no limitations History of Present Illness ED Provider: Neda Jacobs PA-C HPI Narrative: This is a 34-year-old male, with a past medical history of a seizure disorder on Keppra, who presents emergency department via EMS with concerns of witnessed seizure by 10-year-old son which occurred this morning. It is unclear how long the seizure lasted for. Per EMS, patient was found on the couch postictal. On my initial evaluation of patient, patient is alert and oriented x4 however moderately confused as to what happened this morning or how he got here. He reports that he is having a mild headache with the associated photosensitivity, otherwise denies any chest pain, shortness for breath, abdominal pain, nausea, vomiting or diarrhea. Patient reports that he does not have any memory of what happened this morning. He is unsure if he took his Keppra this morning. He states that he believes that he has been compliant on his Keppra over the last several days. He states that recently he was started on clindamycin for a dental infection which he has been taking, denies taking that this morning. He also states he has been taking ibuprofen and Tylenol for his pain. He otherwise denies any other recent illness. He is being followed by Dr. Goetz from [facility] but has not seen him in over a month and a half - has been attempting to be seen again, however he is away on vacation has been unable to be seen by him. No other complaints or concerns at this time. MD complaint: seizure and possible seizure Onset (ago): hour(s) Witnessed: Yes - by Other (Child) Trauma: No Seizure History: Yes Place: Home Possible Precipitating Event: medication Associated symptoms: denies other symptoms Treatments prior to arrival: none Related Data Home Medications ?Medication ?Instructions ?Recorded ?Confirmed acetaminophen 325 mg tablet 975 mg PO QID PRN [place] pa in 02/20/25 02/20/25 clindamycin HCl 300 mg capsule 300 mg PO TID 02/20/25 02/20/25 levetiracetam 500 mg tablet 500 mg PO BID 02/20/2506/15 Allergies Allergy/AdvReac Type Severity Reaction Status Date / Time kiwi Allergy Severe Anaphylaxis Verified 02/20/25 08:08 codeine Allergy Unknown HIVES Verified 02/20/25 08:08 banana Allergy Anaphylaxis Verified 02/20/25 08:08 tree nut Allergy Rash Verified 02/20/25 08:08 Codeine Sulfate Allergy Unknown Anaphylaxis Uncoded 02/20/25 08:08 Codeine Phosphate Allergy Anaphylaxis Uncoded 02/20/25 08:08 Review of Systems 2 Review of Systems: Constitutional : No Fever, No Chills ENT/Mouth : No sore throat, No Rhinorrhea Eyes: No Eye Pain, No Swelling, No Redness Cardiovascular : No Chest Pain, No SOB Respiratory : No Cough, No Sputum Gastrointestinal : No Nausea, No Vomiting, No Diarrhea, No abdominal Pain Genitourinary : No Dysuria, No Hematuria Musculoskeletal : No joint pain, No Myalgias, No Joint Swelling Skin : No Skin Lesions Neuro : No Weakness, No Numbness, No Headache All other systems reviewed and are negative Yes all other systems are reviewed and are negative Constitutional: Constitutional: Reports as per [facility] Past Medical History Medical History (Updated 02/22/25 @ 00:01 by Nisa Oswald) History of seizures Social History Social History (Updated 10/21/23 @ 09:20 by Maryan Sanabria [facility]) Household Members: None Housing: Condominium Do you presently have visiting nurse or other home services: No Alcohol intake: current Comment: refusing interventions. 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 No evidence of abscess. Able to open and close jaw without difficulty. No trismus, drooling, or dysphonia. Head: Yes normal to inspection, Yes normocephalic and Yes atraumatic E ars: hearing grossly normal bilaterally General nose exam: Normal external nose present Face and sinus: Yes normal facial exam Mouth: Normal oral and palatal mucosa present, oropharynx normal and moist mucous membranes Throat: Yes posterior oropharynx normal Eyes: General: appearance normal, both eyes and all related structures E yelids: Yes eyelids normal Conjunctivae: conjunctivae normal Sclerae: s clerae normal Pupils: Equal, round and reactive pupils present EOM: EOMs intact bilaterally Neck: Neck: Yes normal visual inspection, Yes full ROM and Yes no lymphadenopathy Lymphatic: no lymphadenopathy noted Chest: Chest palpation & inspection: normal inspection of the chest Resp: Effort & Inspection: normal respiratory effort and able to speak in complete sentences Auscultation: clear to auscultation bilaterally, no crackles, no rales, no rhonchi and no wheezes Cardio: Rate: regular rate Rhythm: regular rhythm Heart sounds: S1 normal heart sound present and S2 normal heart sound present GI: Inspection: Yes normal to inspection Skin: General skin exam: no rashes or lesions noted Trauma: no lacerations or abrasions Wounds: no wounds Neuro: General: patient oriented x3 and moves all extremities Cranial nerves: Yes CN's II-XII intact bilaterally and Yes Equal, round and reactive pupils present Cognition (Neuro): normal cognition Gait exam (Neuro): N ormal gait present Motor exam (neuro): 5/5 motor strength present throughout and Pronator motor function not present Pupils: Normal pupillary reactivity/response: bilateral Extrem: General: Yes normal to inspection Right upper extremity: normal to inspection Left upper extremity: normal to inspection Right lower extremity: normal to inspection Left lower extremity: normal to inspection Medications Administered Discontinued Medications Generic Name Dose Route Start Last Admin Trade Name Freq PRN Reason Stop Dose Admin Acetaminophen 1,000 mg in 100 mls @ 400 mls/hr 02/20/25 10:23 02/20/25 12:11 Ofirmev IV 02/20/25 10:37 Infused ONCE ONE Infusion Sodium Chloride 1,000 mls @ 999 mls/hr 11/02/25 10:23 02/20/25 12:16 Ns IV 02/20/25 11:23 Infused .Q1H1M ONE Infusion Levetiracetam 500 mg in 100 mls @ 400 mls/hr 02/20/25 11:00 02/20/25 12:15 Keppra IV 02/20/25 11:14 Infused ONCE ONE Infusion Ketorolac Tromethamine 15 mg 02/20/25 12:59 02/20/25 13:12 Ketorolac Tromethamine 15 Mg/Ml Vial IVPUSH 02/20/25 13:00 15 mg ONCE ONE Administration Levetiracetam 500 mg 02/20/25 09:18 02/20/25 10:11 Levetiracetam 500 Mg Tablet PO 02/20/25 09:19 500 mg ONCE ONE Administration Midazolam HCl 1 mg 02/20/25 10:46 02/20/25 10:47 Midazolam Hcl 2 Mg/2 Ml Vial IVPUSH 02/20/25 10:47 1 mg ONCE ONE Administration Morphine Sulfate 4 mg 02/20/25 14:31 02/20/25 14:45 Morphine Sulfate 10 Mg/Ml Cartridge IVPUSH 02/20/25 14:32 4 mg ONCE ONE Administration Protocol Medical Decision Making Medical Decision Making MDM Narrative: This is a 34-year-old male, with a past medical history of a seizure disorder on Keppra, who presents emergency department via EMS with concerns of witnessed seizure by 10-year-old son which occurred this morning. On arrival, patient is well-appearing, does appear to be slightly confused, postictal. He is alert and oriented however does have some confusion as to the events leading up to his presentation today. He believes he has been compliant on his Keppra over the last several days. He is currently on clindamycin for dental infection. He also has been taking ibuprofen and Tylenol. Denies any recent fevers or chills. No other illness. No chest pain or shortness for breath. He is neurologically intact. Differential diagnoses include seizure disorder, medication noncompliance, drug or alcohol intoxication or withdrawal, electrolyte derangement, complex migraine. ICH is less likely but will obtain head CT due to patient complaining of a headache. I called over to patient's pharmacy, patient currently on Keppra 500mg and lamictal. Pharmacist also reporting that patient has failed a clindamycin prescription on 02/17/2025. Plan: Labs, EKG, CT head and neck 10:47 AM 02/20/2025 (Neda Jacobs PA-C): pt had an episode in which patient was picking at his arm and started to look to the side of his head and was nonverbal. He became tachycardic at 150s-160s, this episode lasted approximately 10 to 15 seconds, Dr. Solis at bedside. Unclear if this was a true seizure-like activity given this being the 2-3 episode today, patient should be admitted for monitoring. We will call out to neurologist, Dr. Goetz, from [facility]. Patient's overall workup reassuring, he has no leukocytosis, stable H&H, chemistry revealing no significant electrolyte derangement. Urine noninfectious, U tox positive for marijuana, negative lactic and CPK. Head CT, C-spine CT and chest x-ray revealing no acute process. 12:50 PM 02/20/2025 (Neda Jacobs PA-C): Spoke to Dr. Larson, neurologist covering recommending observation. Neurologist check to see if there is any interactions with being on clindamycin and Lamictal levels. Neurologist is thinking that maybe he has been missing dosages of Keppra which is causing breakthrough seizures. Recommending to cover Keppra and once patient becomes more oriented to ask about Lamictal. Patient has been in the transition of tapering off of Keppra and adding on Lamictal. Depending on where he is at with this titrating process, they may be able to increase this however it is unclear if patient is truly taking Lamictal at this point. Neurologist recommending once he becomes more oriented to discuss this further in detail. Patient is resting comfortably, slightly confused, unable to report or he was in his titrating process. Will discussed with hospitalist for transfer of care. 1400 - patient refusing hospital admission. States that he has a dental appointment tomorrow, and he does not want to miss this appointment. I discussed with patient that this is not in his best interest, he needs to be monitored for the seizure disorder for further stabilization of this. Patient adamantly refuses. He is seen by my attending physician, Dr. Solis. We discussed at length the importance of staying for management of his seizures however he adamantly refuses. He understands the risks and consequences of leaving against medical advice. Patient does report that if his dental pain is better managed, he may consider this to stay. We discussed that we will medicate him with morphine as Toradol did not help him. 1800 - patient has been resting comfortably, I discussed with patient that this is in his best interest to be admitted to the hospital. He still adamantly refuses. Mother and girlfriend at bedside. I allowed him to rest after receiving morphine. He states that he will think about staying if he received another dose of morphine, however we discussed with patient that getting another dose of morphine may not help his pain and therefore he would like to be discharged. He will sign against medical advice. He is aware of these risks and consequences sign paperwork. Differential Diagnosis Differential Diagnoses: The differential diagnosis associated with the presentation includes see mdm Admission/Observation Consideration of admission/observation: Escalation of care including admission/observation considered See above Consult Healthcare Provider Management of the patient was discussed with: Fleet Operations Manager Dr. Larson, neurologist - [facility] Lab Data [facility] Lab Attestation statement: I reviewed the patient's lab results. See MDM 02/20/25 09:30 02/20/25 09:30 Labs: Lab Results 02/20/25 02/20/25 Range/Units 09:30 11:14 WBC 6.9 (4.8-10.8) X10*3/uL RBC 4.79 (4.60-5.80) X10*6/uL Hgb 14.2 (14.0-18.0) g/dl Hct 43.3 (42.0-52.0) % MCV 90.4 (80.0-98.0) fL MCH 29.6 (27.0-33.0) pg MCHC 32.8 (31.0-36.0) g/dl RDW 13.2 (11.0-16.0) % Plt Count 207 (160-400) X10*3/uL MPV 9.0 L (9.4-12.4) fL Immature Gran % (Auto) 0.4 (0.0-0.4) % Neut % (Auto) 64.1 (45-73) % Lymph % (Auto) 22.3 (20-40) % Hill % (Auto) 10.5 (2-11) % Eos % (Auto) 2.3 (0-4) % Baso % (Auto) 0.4 (0-2) % Lymph # (Auto) 1.5 (1.2-4.9) X10*3/uL Hill # (Auto) 0.7 (0.1-1.2) X10*3/uL Eos # (Auto) 0.2 (0.0-0.4) X10*3/uL Baso # (Auto) 0.0 (0.0-0.2) X10*3/uL Abs Immat Gran (auto) 0.03 (0.00-0.03) X10*3/uL Absolute Neuts (auto) 4.4 (2.0-8.3) x10*3/uL Absolute Nucleated RBC 0.000 (0.0-0.012) X10*3/uL Nucleated RBC % (auto) 0.0 (0.0-0.2) /100WBC Sodium 139 (135-145) mmol/L Potassium 4.5 (3.3-5.1) mmol/L Chloride 110 H (96-108) mmol/L Carbon Dioxide 23 (22-29) mmol/L Anion Gap 11 L (12-20) BUN 11 (9-16) mg/dL Creatinine 0.72 (0.5-1.4) mg/dL Estim Creat Clear Calc 135.7 Estimated GFR > 60 Random Glucose 102 (60-115) mg/dL Lactic Acid 1.1 (0.5-2.0) mmol/L Calcium 8.6 (8.4-10.2) mg/dL Magnesium 2.3 (1.6-2.6) mg/dL Total Bilirubin 0.3 (0.0-1.0) mg/dL Direct Bilirubin 0.1 (0.0-0.5) mg/dL AST 22 (5-37) U/L ALT 29 (0-40) U/L Alkaline Phosphatase 60 (39-117) U/L Total Creatine Kinase 71 (38-174) U/L Total Protein 6.5 (6.5-8.0) g/dL Albumin 4.5 (3.5-5.0) g/dL Urine Color Yellow Urine Appearance Clear Urine pH 6.0 (5.0-9.0) Ur Specific [place] 1.020 (1.005-1.025) Urine Protein Trace (Neg-Trace) mg/dL Urine Glucose (UA) Negative (Negative) mg/dL Urine Ketones Negative (Negative) mg/dL Urine Blood Negative (Negative) Urine Nitrite Negative (Negative) Ur Leukocyte Esterase Negative (Negative) Salicylates < 5.0 L (15-30) mg/dL Urine Opiates Screen Not Detected (Not Detect) Ur Buprenorphine Scrn Not Detected (Not Detect) ng/mL Ur Oxycodone Screen Not Detected (Not Detect) ng/mL Urine Methadone Screen Not Detected (Not Detect) ng/mL Urine Fentanyl Screen Not Detected (Not Detect) Acetaminophen 4 (<30) mcg/mL Ur Barbiturates Screen Not Detected (Not Detect) Levetiracetam <2.0 L (6.0-46.0) mcg/mL Ur Phencyclidine Scrn Not Detected (Not Detect) Ur Amphetamines Screen Not Detected (Not Detect) U Benzodiazepines Scrn Not Detected (Not Detect) Urine Cocaine Screen Not Detected (Not Detect) U Marijuana (THC) Screen POSITIVE H (Not Detect) Ethyl Alcohol < 10 mg/dL Independent Interpretation I performed an independent interpretation of an: EKG Interpretation: EKG sinus bradycardic at a ventricular rate of 56 beats per minute, MD interval 150, no STEMI. Radiology Impression Discussion of test interpretation with radiology: I have reviewed the radiologist's reading. Radiologist Impression: Findings: The lungs are clear without consolidation or effusion. Normal size heart. No acute fracture. IMPRESSION: No acute cardiopulmonary findings. This document has been electronically signed by: Kris Lara MD on 02/20/2025 09:23:09 Dictated By: Kris Lara MD Independent Historian Clinical information obtained from an independent historian. History obtained from or confirmed by: Parent Chronic Conditions Patient?s care impacted by: Other (Seizure disorder) Critical Care Time Critical Care Time Critical Care Time: Yes Total Critical Care Time: 40 Attestation: I have personally provided critical care time exclusive of time spent on separately billable procedures. Time includes review of lab data, radiology results, discussion with consultants, and monitoring for potential decompensation. Intervention performed as documented. Discharge Plan Discharge Clinical Impression: Seizure Patient Disposition: Left Against Medical Advice Instructions: Recurrent Seizures in Adults (ED) Additional Instructions: You were evaluated in the emergency department today after witnessed seizure activity. It was strongly urged that you stay in the emergency room as you had multiple witnessed seizures today. We spoke to the covering neurologist who recommended admission and observation. We discussed that we could manage your pain as well as your seizures here in the emergency department, however you adamantly refused this. You are aware of the life-threatening consequences of leaving against medical advice including but not limited to worsening seizure activity, severe disability, severe decreased quality of life, or brain . You are leaving emergency department against medical advice. Should you change your mind, you can return to the emergency department at any time. YOU MUST NOT DRIVE UNTIL YOU HAVE BEEN CLEARED BY EITHER YOUR PRIMARY CARE PROVIDER OR NEUROLOGIST. This is for the safety of you, your child, and other drivers and pedestrians on the road. You should also avoid activities which could put your safety at risk if you were to have a seizure. (Climbing ladders, operating heavy machinery, swimming, etc) Please call your neurologist tomorrow. Prescriptions: No Action acetaminophen 325 mg Tablet 975 mg PO QID PRN (Reason: tooth pain) clindamycin HCl 300 mg Capsule 300 mg PO TID levetiracetam 500 mg tablet 500 mg PO BID Stand Alone Forms: Against Medical Advice Discharge Date/Time: 02/20/25 16:15 Print Language: Haitian
--- NOTE | 2025-02-20 08:19 | ECG_ITS ---
Test Reason : ?SEIZURE Blood Pressure : */* mmHG Vent. Rate : 56 BPM Atrial Rate : 56 BPM P-R Int : 150 ms QRS Dur : 82 ms QT Int : 384 ms P-R-T Axes : 86 88 74 degrees QTcB Int : 370 ms Sinus bradycardia Otherwise normal ECG When compared with ECG of 25-Sep-2024 11:03, No significant changes seen Referred By: Neda Jacobs Electronically Signed By: FAN KAYE
[2025-02-20 09:36] LABS: MANUAL DIFF FLAG NO
[2025-02-20 09:40] LABS: Hematocrit 43.3 % (42.0-52.0); Hemoglobin 14.2 g/dl (14.0-18.0); Imm Gran Abs Auto 0.03 X10*3/uL (0.00-0.03); Imm Gran Pct Auto 0.4 % (0.0-0.4); Lymphocytes Absolute Auto 1.5 X10*3/uL (1.2-4.9); Mean Corpuscular HGB Conc 32.8 g/dl (31.0-36.0); Mean Corpuscular Hemoglobin 29.6 pg (27.0-33.0); Mean Corpuscular Volume 90.4 fL (80.0-98.0); NRBC Abs Auto 0.000 X10*3/uL (0.0-0.012); NRBC Pct Auto 0.0 /100WBC (0.0-0.2); Platelet Count 207 X10*3/uL (160-400); Red Blood Count 4.79 X10*6/uL (4.60-5.80); White Blood Count 6.9 X10*3/uL (4.8-10.8)
[2025-02-20 09:54] LABS: Alanine Aminotransferase 29 U/L (0-40); Albumin Level 4.5 g/dL (3.5-5.0); Alkaline Phosphatase 60 U/L (39-117); Anion Gap 11 (12-20); Aspartate Amino Transferase 22 U/L (5-37); Blood Urea Nitrogen 11 mg/dL (9-16); Calcium 8.6 mg/dL (8.4-10.2); Carbon Dioxide 23 mmol/L (22-29); Chloride 110 mmol/L (96-108); Creatinine Clr Calc Pharmacy 135.7; Estimated Glomerular Filt Rate > 60; Magnesium 2.3 mg/dL (1.6-2.6); Potassium 4.5 mmol/L (3.3-5.1); Sodium 139 mmol/L (135-145); Total Protein 6.5 g/dL (6.5-8.0)
[2025-02-20 09:55] LABS: Acetaminophen LAB 4 mcg/mL (<30); Salicylate < 5.0 mg/dL (15-30)
--- NOTE | 2025-02-20 10:47 | ECG_ITS ---
Test Reason : ?SEIZURE Blood Pressure : */* mmHG Vent. Rate : 99 BPM Atrial Rate : 99 BPM P-R Int : 134 ms QRS Dur : 80 ms QT Int : 310 ms P-R-T Axes : 75 86 60 degrees QTcB Int : 397 ms Sinus rhythm with marked sinus arrhythmia Junctional ST depression, probably normal Borderline ECG When compared with ECG of 20-Feb-2025 08:56, Vent. rate has increased by [address] now depressed in Anterior leads Referred By: Neda Jacobs Electronically Signed By: Marquez Robison
--- NOTE | 2025-02-20 10:50 | PC.NURSE ---
After medication administration, patient observed to stare off and become less responsive. Patient began touching IV site and was intermittently following commands- answered some questions appropriately, others ignored. Pt noted to reach out with arms and touch left arm without clear purpose. No tonic-clonic activity observed. HR increased to 140s sinus tach on monitor during episode and returned to baseline shortly after. NALINI Red notified and present at bedside. No O2 desats noted. Pt medicated per JUN with 1mg IVP Versed- verbal order per PA. Following event, patient remained confused but was able to follow directions and answer questions appropriately. Vitals updated and documented post event. Family at bedside, call tsai within reach, all needs met at this time.
[2025-02-20] MEDS: levETIRAcetam in NaCl (iso-os) 500 MG/100 ML PIGGYBACK 400 MG IV (11:06)
[2025-02-20 11:21] LABS: Appearance Urine Clear; Glucose Urine UA Negative (Negative); PH 6.0 (5.0-9.0); Specific Gravity - Urine 1.020 (1.005-1.025)
[2025-02-20 11:30] LABS: Cannabinoid Screen Urine POSITIVE (Not Detect)
--- NOTE | 2025-02-20 12:00 | PC.NURSE ---
Pt resting quietly with eyes closed after medication administration- respirations even and unlabored, HR 60s-70s on projection printer normal sinus rhythm, BP cycling q15 to monitor. Family remains at bedside, call tsai within reach, all needs met at this time.
--- NOTE | 2025-02-20 13:20 | PC.NURSE ---
While NALINI Red and this RN at bedside, pt began removing cardiac leads/medical equipment. Pt stating this is a waste of time. Agitated/irritable with staff- not able to be redirected after multiple attempts at educating pt on what he's here for. Pt medicated per JUN with IV toradol for pain- pending effectiveness. Unable to obtain vitals at this time d/t pt agitated with staff. Family remains at bedside. Call tsai within reach, all needs met at this time.
--- NOTE | 2025-02-20 14:37 | PHA.MEDREC ---
Pharmacy Consult ? Medication Reconciliation Pharmacy has completed the medication reconciliation. Patients mother was at bedside. Both Austin and his mother were able to confirm that he is on keppra 500 mg BID. They also confirmed patient is on day 4 of a 14 day course of clindamycin 300 mg TID for dental prevention. Patient also stated he has been taking copious amounts of tylenol recently due to non controlled tooth pain.
[2025-02-23 08:54] LABS: Levetiracetam Keppra <2.0 mcg/mL (6.0-46.0)
== END 2025-02-20 16:15 | disposition left against medical advice (07) ==
PROVIDERS: Physician Assistant Medical; Emergency Provider Emergency Medicine Emergency Medical Services
DX: R56.9 Unspecified convulsions (principal); R00.0 Tachycardia, unspecified; M54.2 Cervicalgia; R51.9 Headache, unspecified; R07.89 Other chest pain; R11.0 Nausea; Z79.899 Other long term (current) drug therapy; Z51.81 Encounter for therapeutic drug level monitoring
CPT/HCPCS: 36415; 70450; 71045; 72125; 80048; 80076; 80143; 80177; 80179; 80307; 81003; 82550; 83605; 83735; 85025; 93005; 96361; 96374; 96375; 99285; J0131; J1885; J1953; J2250; J2270

== ENCOUNTER → 2025-02-20 08:19 | Outpatient (BNV) | payer MEDICAID, SELFPAY | PROVIDERS: Emergency Provider Emergency Medicine Emergency Medical Services; Visit Provider Internal Medicine | DX: R00.0 Tachycardia, unspecified (principal) | CPT/HCPCS: 93010 ==

== ENCOUNTER → 2025-02-20 08:19 | Outpatient (BNV) | payer MEDICAID, SELFPAY | PROVIDERS: Emergency Provider Emergency Medicine Emergency Medical Services; Visit Provider Radiology Vascular & Interventional Radiology | DX: R56.9 Unspecified convulsions (principal) | CPT/HCPCS: 70450; 71045; 72125 ==